=== PATIENT | female | born 1945 | race Caucasian/White ===

== ENCOUNTER → 2018-01-23 14:08 | Outpatient (CLI) | payer MEDICARE, OTHER, SELFPAY ==
--- NOTE | 2018-01-23 | DI.CT.S_ITS ---
PROCEDURE: CT LE LT W CON INDICATIONS: primary osteoarthritis of right foot TECHNIQUE: Noncontrast 1-1.5 mm axial sections acquired from above the tibiotalar joint to the bottom of the calcaneus, with coronal and sagittal reformats. COMPARISON: [facility], CT, LOWER EXTREMITY WO CONTRAST, 04/28/2016, 12:22. FINDINGS: Image quality: Excellent. Bones: No fractures or subluxation. There are osteoarthritic changes are demonstrated in the midfoot including moderate degeneration at the 2nd and 3rd tarsometatarsal joints with joint space narrowing, subchondral sclerosis and cystic changes, and osteophytosis. Findings demonstrate slight progression compared to the prior study. There is mild degeneration of the metatarsophalangeal joints. The visualized interphalangeal joints appear grossly preserved. Proximally, there is mild degeneration of the tibiotalar joint. Soft tissues: No tibiotalar joint effusion. There are small calcific densities inferior to the medial malleolus dressing sequelae of prior avulsion injury or heterotopic ossification. There are also small calcifications posteriorly along the tibiotalar joint also suggestive of heterotopic ossification or dystrophic calcifications along ligamentous structures. IMPRESSION: 1. Midfoot osteoarthritic changes including moderate degeneration of the 2nd and 3rd tarsometatarsal joints, slightly progressed compared to the prior study. 2. Mild degeneration elsewhere within the foot as described. Dictated by: Donato Spencer M.D. on 01/23/2018 at 16:36 Approved by: Donato Spencer M.D. on 01/23/2018 at 16:41
== END ==
PROVIDERS: Family Provider Physician Assistant Medical; PCP Physician Assistant Medical; Visit Provider Orthopaedic Surgery Foot and Ankle Surgery
DX: M19.071 Primary osteoarthritis, right ankle and foot (principal)
CPT/HCPCS: 73700

== ENCOUNTER 2018-02-22 05:40 | Day surgery (SDC) | payer MEDICARE, OTHER, SELFPAY ==
[2018-02-13 14:23] VITALS: BMI 35.7
[2018-02-22] VITALS (8 sets, daily range): BP systolic 120–158; BP diastolic 62–86; PULSE 68–79; RESP 10–16; TEMP 36–36.3; O2SAT 92–99; BMI 35.7
--- NOTE | 2018-02-22 07:11 | PM.PREOP ---
Pre-operative Note Interval Note Pre-op Check: Yes History & Physical Reviewed by Physician and Yes Exam Performed Changes: No
[2018-02-22] MEDS: fentaNYL 100 MCG/2 ML INJ 50 MCG IV (07:50)
[2018-02-22] MEDS: MIDAZOLAM 2 MG/2 ML VIAL IV (07:50)
[2018-02-22] MEDS: CEFAZOLIN 2 GM/100 ML FROZ.PIGGY IV (07:55)
[2018-02-22] MEDS: LACTATED RINGERS 1,000 ML 42 ML IV (08:06)
--- NOTE | 2018-02-22 08:11 | SUR.PREOP ---
Block start time []0754 . Monitoring initiated and maintained throughout procedure. Oxygen and medications given per anesthesiologist instructions. Patient remained stable throughout procedure, no adverse reactions noted. Block end time [0758].
--- NOTE | 2018-02-22 08:43 | SUR.OPER ---
Supine on padded OR bed, head on pillow, arms secured on padded arm boards at <90 degrees abduction, legs uncrossed, safety belt at thigh, tape over blanket over lower legs.
--- NOTE | 2018-02-22 08:43 | SUR.OPER ---
ROLLED BLANKET UNDER RIGHT HIP
[2018-02-22] MEDS: BUPIVACAINE 0.25% (PF) VIAL 30 ML INJ (08:57)
[2018-02-22] MEDS: CEFAZOLIN 1 GM VIAL IV (12:03)
--- NOTE | 2018-02-22 12:20 | DI.RAD.S_ITS ---
PROCEDURE: XR FOOT RT MIN 3V INDICATIONS: RIGHT FOOT REPAIR ACHILLES LENGTHENING TECHNIQUE: 11 intraoperative fluoroscopic images of the foot were acquired. COMPARISON: None. FINDINGS: Bones: Intraoperative fluoroscopic images of right foot shows fusion of first through third TMT joints with multiple fixation screws and surgical plates in place. Alignment of right foot is anatomic. Soft tissues: No gross abnormality is seen. IMPRESSION: Intraoperative fluoroscopic images shows fusion of right first and third TMT joints with anatomic alignment. Dictated by: Oracio Harmon M.D. on 02/22/2018 13:00 Approved by: Oracio Harmon M.D. on 02/22/2018 at 13:02
--- NOTE | 2018-02-22 13:03 | SUR.OPER ---
gelfoam and thrombin used in incision post tourniquet
[2018-02-22] MEDS: OXYCODONE IR 5 MG TABLET PO (13:38)
--- NOTE | 2018-02-22 14:35 | PM.OP.1 ---
Operative Date/Time/Diagnoses Date of procedure: 02/22/18 Time of procedure: 14:39 Pre-op diagnosis: Osteoarthritis right midfoot ICD 10 M19.071 Equinus contracture right ankle M24.571 Post-op diagnosis: same Procedure & Clinicians Procedure: 1. Arthrodesis, midtarsal or tarsometatarsal, multiple transverse, right CPT 74184 2. Lengthening, Achilles tendon, closed, right cpt 22030-71 3. Iliac crest bone marrow aspiration, right cpt code 38048 -59 Same procedure as scheduled: Yes Indications: Patient is a 72-year-old female with right midfoot arthritis and equinus contracture. She has failed conservative management with shoe modifications anti-inflammatories, corticosteroid injections, orthotics, diclofenac patches. She has a well controlled diabetic with hemoglobin A1c 6.1 she has daily pain and soreness that is activity limiting and she is desiring surgical fixation. The patient does not smoke and has protective sensation. She has been indicated for right midfoot fusion and percutaneous Achilles lengthening with iliac crest bone graft. The risks benefits and alternatives to the procedure were explained to the patient in detail including infection, bleeding, damage to nerves and blood vessels, wound dehiscence or healing problems, nonunion, malunion, symptomatic hardware, further need for removal of hardware, inability to return to the desired level of function, generalized dissatisfaction with the surgical result, DVT, PE, cardiopulmonary complications and . All the patient's questions were answered they elected to proceed. Surgeon: Alyssa Burton Weir Fisherman: Rica Alexis Anesthesia Type: General, Peripheral nerve block and Local Operative Notes Findings: Degenerative arthritis of the 1st 2nd and 3rd tarsometatarsal joint with extensive degeneration and eburnated bone in the 2nd and 3rd tarsometatarsal joints with dorsal spurring articular cartilage loss and cyst formation Closure Type: primary Specimen(s): none sent Implants & Drains: First TMT arthrodesis: : 4.0 cortical lag screw x2 Lisfranc home run screw: [id number]: 4.0 cannulated screw Second TMT arthrodesis : 3 hole slanted straight plate right-sided Third TMT arthrodesis : 3 holes slanted straight plate left side 5 cc DMX cortical fibers, 15cc cancellous chips Applied: other (Splint) Estimated Blood Loss (mL): 30 Blood products transfused: none Tourniquet time (min): 120 Procedure in detail: In the preoperative holding area, the appropriate limb and side of surgery were marked. Informed consent was confirmed and final questions answered. The patient was brought to the operating room and positioned supine on the operative table. General endotracheal anesthesia was obtained. A well-padded thigh tourniquet was placed on the upper aspect of the right thigh. Patient's right leg was then positioned with thigh bump. And the contralateral extremity was well padded around the peroneal nerve and taped down. The right leg was then prepped and draped in the standard sterile fashion after 3 step scrubbed with alcohol, chlorhexidine sponge and then the usual chlorhexidine surgical scrub. Additionally the patient's right iliac crest was prepped in the standard sterile fashion. A formal time-out procedure was completed confirming the patient, side and site of surgery and administration of appropriate preoperative antibiotics which in this case was 2 g of cefazolin. All were in agreement and implants were in the room. An Esmarch bandage was utilized to exsanguinate the limb the tourniquet was raised to 300 mm of mercury and stayed there for 120 min. Tendo-Achilles lengthening: Attention was turned to the right foot the ankle was dorsiflexed with the knee extended and with the knee bent with dorsiflexion only to neutral in both positions. Therefore decision was made to proceed with the percutaneous tendo-Achilles lengthening. The leg was elevated and the ankle held in dorsiflexion by the doctor assistant. Three small percutaneous incisions were made and a [place] style fashion to hemisection the Achilles tendon with distal and proximal incisions ankle laterally and the middle incision ankle medially. Provided an excellent release and the lengthening achieving approximately 15? of dorsiflexion with knee extension. The remaining lengthened Achilles tendon was a palpable cord posteriorly. C-arm was brought in and the dual dorsal incision were marked out over the skin along the 1st and 2nd metatarsal interval as well as over the 4th metatarsal. A dorsal medial incision was made 1st sharply through the skin and carried down through the underlying soft tissues to expose the tarsometatarsal joint complex. The EHL tendon was protected and reflected laterally to protect the neurovascular bundle. The 1st TMT joint capsule was then entered and subperiosteal dissection was carried to expose the 1st TMT joint. There was minimal arthritis of the 1st TMT but this increased at the lateral aspect of the joint and into the 1st 2nd interval. The neurovascular bundle was then retracted medially to expose the 2nd TMT joint and this again was subperiosteal E dissected to expose end-stage degenerative joint with eburnated bone in a very little remaining cartilage and prominent dorsal osteophytes. The lateral dorsal incision was also made through the skin and dissected carefully down through the subcutaneous tissues to the 3rd tarsometatarsal joint. This was also late stage degenerative with articular cartilage loss osteophyte formation and cystic change. All articular cartilage was removed from the 1st 2nd and 3rd joints using the Synthes joint prep set osteotomes. This took quite some time was challenging due to the eburnated hard bone of the 2nd and 3rd tarsometatarsal joints. Additionally underlying cysts were encountered creating the areas of bone loss. Once the subchondral bone was adequately exposed this was then prepared with a bur and 2.0 mm drill bit to create good bleeding surfaces. The iliac crest bone marrow aspirate was then performed on the right side utilizing the Jamshidi needle. 2 different incisions were made for the iliac crest aspirate attempts and several redirections or made st each sit. unfortunately only a negligible amount of aspirate was able to be obtained. therefore this, saline and plain blood were used to hydrate the allogenic bone graft. Iliac crest aspirate sites were closed with 3 O nylon suture. Surgical Gloves were changed and attention was returned to the right foot. The allogenic bone graft was placed into all of the fusion sites, and into the 1 -2 interval. First tarsometatarsal joint was then reduced and held in place with 2 crossed K-wires. This was checked on C-arm fluoroscopy for positioning then the wires were measured and exchanged for a countersunk distal to proximal 4.0 cortical lag screw and a countersunk proximal to distal 4.0 cortical lag screw. This stably reduced the 1st tarsometatarsal joint. Attention was then turned to the 2nd tarsometatarsal joint. Sec TMT was reduced utilizing a right-sided 2.7 slanted straight plate. This was approximated to bone and secured with 2.7 locking screws in the middle cuneiform then with a 3.5 nonlocking screw in compression mode over the 2nd metatarsal to compress the arthrodesis, followed by an additional 2.7 locking screw distally. The 3rd tarsometatarsal joint was reduced and fixed in the same fashion using the same 2.7 slanted straight plate, but from the left-side of the set in order to use the same size plate to span the arthrodesis and provide optimal bone fixation. Again 2.7 locking screws were used proximally. One of these was changed out for a 3.5 locking screw after 1 of the 2 7 locking screws stripped would not engage in the plate. Compression was achieved distally with a 3.5 nonlocking screw in the oval hole. And then 2 , 2.7 locking screws were placed into the metatarsal. This achieved excellent fixation and alignment. Finally a Home run Lisfranc screw was added from the medial cuneiform to the base of the 2nd metatarsal and this was a 4.0 cannulated screw. Irrigation was performed. Final fluoroscopy was brought in for assessment of the hardware placement. Alignment of the joints and hardware placement was excellent. Hemostasis was achieved, and the wound was closed with 2 O Vicryl, 4 0 Monocryl, [id number] nylon. Skin was closed at the end of the procedure without excessive tension. A sterile bulky dressing and splint was then applied. Patient was woken from anesthesia and taken to the recovery room in good condition. There were no known the immediate complications from this procedure. Complications: none Condition: stable Disposition: PACU Plan for aftercare: The patient will be strict elevation, strict nonweightbearing on the right lower extremity. She is allergic to aspirin and therefore will start Xarelto postop day 1 for DVT prophylaxis. They will follow up in 1 weeks time for wound check and then transition to a cast. They will follow up 2 weeks later for wound check and possible suture removal. Anticipated 8-12 weeks nonweightbearing based on healing on radiographs.
--- NOTE | 2018-02-22 14:40 | P.OP_ITS ---
Operative Date/Time/Diagnoses Date of procedure: 02/22/18 Time of procedure: 14:39 Pre-op diagnosis: Osteoarthritis right midfoot ICD 10 M19.071 Equinus contracture right ankle M24.571 Post-op diagnosis: same Procedure & Clinicians Procedure: 1. Arthrodesis, midtarsal or tarsometatarsal, multiple transverse, right CPT 31197 2. Lengthening, Achilles tendon, closed, right cpt 78545-57 3. Iliac crest bone marrow aspiration, right cpt code 81480 -59 Same procedure as scheduled: Yes Indications: Patient is a 72-year-old female with right midfoot arthritis and equinus contracture. She has failed conservative management with shoe modifications anti-inflammatories, corticosteroid injections, orthotics, diclofenac patches. She has a well controlled diabetic with hemoglobin A1c 6.1 she has daily pain and soreness that is activity limiting and she is desiring surgical fixation. The patient does not smoke and has protective sensation. She has been indicated for right midfoot fusion and percutaneous Achilles lengthening with iliac crest bone graft. The risks benefits and alternatives to the procedure were explained to the patient in detail including infection, bleeding, damage to nerves and blood vessels, wound dehiscence or healing problems, nonunion, malunion, symptomatic hardware, further need for removal of hardware, inability to return to the desired level of function, generalized dissatisfaction with the surgical result, DVT, PE, cardiopulmonary complications and . All the patient's questions were answered they elected to proceed. Surgeon: Alyssa Burton Internet Marketing Specialist: Rica Alexis Anesthesia Type: General, Peripheral nerve block and Local Operative Notes Findings: Degenerative arthritis of the 1st 2nd and 3rd tarsometatarsal joint with extensive degeneration and eburnated bone in the 2nd and 3rd tarsometatarsal joints with dorsal spurring articular cartilage loss and cyst formation Closure Type: primary Specimen(s): none sent Implants & Drains: First TMT arthrodesis: [id number]: 4.0 cortical lag screw x2 Lisfranc home run screw: [id number]: 4.0 cannulated screw Second TMT arthrodesis : 3 hole slanted straight plate right-sided Third TMT arthrodesis [id number]: 3 holes slanted straight plate left side 5 cc DMX cortical fibers, 15cc cancellous chips Applied: other (Splint) Estimated Blood Loss (mL): 30 Blood products transfused: none Tourniquet time (min): 120 Procedure in detail: In the preoperative holding area, the appropriate limb and side of surgery were marked. Informed consent was confirmed and final questions answered. The patient was brought to the operating room and positioned supine on the operative table. General endotracheal anesthesia was obtained. A well-padded thigh tourniquet was placed on the upper aspect of the right thigh. Patient's right leg was then positioned with thigh bump. And the contralateral extremity was well padded around the peroneal nerve and taped down. The right leg was then prepped and draped in the standard sterile fashion after 3 step scrubbed with alcohol, chlorhexidine sponge and then the usual chlorhexidine surgical scrub. Additionally the patient's right iliac crest was prepped in the standard sterile fashion. A formal time-out procedure was completed confirming the patient, side and site of surgery and administration of appropriate preoperative antibiotics which in this case was 2 g of cefazolin. All were in agreement and implants were in the room. An Esmarch bandage was utilized to exsanguinate the limb the tourniquet was raised to 300 mm of mercury and stayed there for 120 min. Tendo-Achilles lengthening: Attention was turned to the right foot the ankle was dorsiflexed with the knee extended and with the knee bent with dorsiflexion only to neutral in both positions. Therefore decision was made to proceed with the percutaneous tendo-Achilles lengthening. The leg was elevated and the ankle held in dorsiflexion by the surveyor instrument assistant. Three small percutaneous incisions were made and a [place] style fashion to hemisection the Achilles tendon with distal and proximal incisions ankle laterally and the middle incision ankle medially. Provided an excellent release and the lengthening achieving approximately 15? of dorsiflexion with knee extension. The remaining lengthened Achilles tendon was a palpable cord posteriorly. C-arm was brought in and the dual dorsal incision were marked out over the skin along the 1st and 2nd metatarsal interval as well as over the 4th metatarsal. A dorsal medial incision was made 1st sharply through the skin and carried down through the underlying soft tissues to expose the tarsometatarsal joint complex. The EHL tendon was protected and reflected laterally to protect the neurovascular bundle. The 1st TMT joint capsule was then entered and subperiosteal dissection was carried to expose the 1st TMT joint. There was minimal arthritis of the 1st TMT but this increased at the lateral aspect of the joint and into the 1st 2nd interval. The neurovascular bundle was then retracted medially to expose the 2nd TMT joint and this again was subperiosteal E dissected to expose end-stage degenerative joint with eburnated bone in a very little remaining cartilage and prominent dorsal osteophytes. The lateral dorsal incision was also made through the skin and dissected carefully down through the subcutaneous tissues to the 3rd tarsometatarsal joint. This was also late stage degenerative with articular cartilage loss osteophyte formation and cystic change. All articular cartilage was removed from the 1st 2nd and 3rd joints using the Synthes joint prep set osteotomes. This took quite some time was challenging due to the eburnated hard bone of the 2nd and 3rd tarsometatarsal joints. Additionally underlying cysts were encountered creating the areas of bone loss. Once the subchondral bone was adequately exposed this was then prepared with a bur and 2.0 mm drill bit to create good bleeding surfaces. The iliac crest bone marrow aspirate was then performed on the right side utilizing the Jamshidi needle. 2 different incisions were made for the iliac crest aspirate attempts and several redirections or made st each sit. unfortunately only a negligible amount of aspirate was able to be obtained. therefore this, saline and plain blood were used to hydrate the allogenic bone graft. Iliac crest aspirate sites were closed with 3 O nylon suture. Surgical Gloves were changed and attention was returned to the right foot. The allogenic bone graft was placed into all of the fusion sites, and into the 1 -2 interval. First tarsometatarsal joint was then reduced and held in place with 2 crossed K-wires. This was checked on C-arm fluoroscopy for positioning then the wires were measured and exchanged for a countersunk distal to proximal 4.0 cortical lag screw and a countersunk proximal to distal 4.0 cortical lag screw. This stably reduced the 1st tarsometatarsal joint. Attention was then turned to the 2nd tarsometatarsal joint. Sec TMT was reduced utilizing a right-sided 2.7 slanted straight plate. This was approximated to bone and secured with 2.7 locking screws in the middle cuneiform then with a 3.5 nonlocking screw in compression mode over the 2nd metatarsal to compress the arthrodesis, followed by an additional 2.7 locking screw distally. The 3rd tarsometatarsal joint was reduced and fixed in the same fashion using the same 2.7 slanted straight plate , but from the left-side of the set in order to use the same size plate to span the arthrodesis and provide optimal bone fixation. Again 2.7 locking screws were used proximally. One of these was changed out for a 3.5 locking screw after 1 of the 2 7 locking screws stripped would not engage in the plate. Compression was achieved distally with a 3.5 nonlocking screw in the oval hole. And then 2 , 2.7 locking screws were placed into the metatarsal. This achieved excellent fixation and alignment. Finally a Home run Lisfranc screw was added from the medial cuneiform to the base of the 2nd metatarsal and this was a 4.0 cannulated screw. Irrigation was performed. Final fluoroscopy was brought in for assessment of the hardware placement. Alignment of the joints and hardware placement was excellent. Hemostasis was achieved, and the wound was closed with 2 O Vicryl, 4 0 Monocryl , [id number] nylon. Skin was closed at the end of the procedure without excessive tension. A sterile bulky dressing and splint was then applied. Patient was woken from anesthesia and taken to the recovery room in good condition. There were no known the immediate complications from this procedure. Complications: none Condition: stable Disposition: PACU Plan for aftercare: The patient will be strict elevation, strict nonweightbearing on the right lower extremity. She is allergic to aspirin and therefore will start Xarelto postop day 1 for DVT prophylaxis. They will follow up in 1 weeks time for wound check and then transition to a cast. They will follow up 2 weeks later for wound check and possible suture removal. Anticipated 8-12 weeks nonweightbearing based on healing on radiographs.
--- NOTE | 2018-02-22 15:59 | SUR.PHASEII ---
[id number] pt dressed with assistance, no pain pt had block , no nausea, assisted to w/c, leg elevated, pt non weight bearing , assisted with transfer to car , no questions
== END 2018-02-22 14:45 | disposition home or self-care (01) ==
PROVIDERS: Family Provider Physician Assistant Medical; PCP Physician Assistant Medical; Visit Provider Orthopaedic Surgery Foot and Ankle Surgery
PROC: (CPT 28730; principal; 2018-02-22 07:45)
PROC: (CPT 27685; 2018-02-22 07:45)
DX: M19.071 Primary osteoarthritis, right ankle and foot (principal); M24.571 Contracture, right ankle; E11.9 Type 2 diabetes mellitus without complications; Z79.84 Long term (current) use of oral hypoglycemic drugs
CPT/HCPCS: 28730; 27606; 38230; 73630; 76001; J0690; J2250; J2405; J2704; J3010

== ENCOUNTER → 2018-07-26 10:54 | Outpatient (CLI) | payer MEDICARE, OTHER, SELFPAY ==
--- NOTE | 2018-07-26 | DI.CT.S_ITS ---
PROCEDURE: CT LUMBAR SPINE WO CON INDICATIONS: Low back pain TECHNIQUE: Noncontrast 3 mm thick sections acquired from the T12 level to the sacrum. Sagittal and coronal reformats were constructed. For radiation dose reduction, the following was used: automated exposure control. COMPARISON: [facility], CR, XR LUMBAR SPINE 2 OR 3 VIEWS, 06/17/2018, 10:03. [facility], CT, L-SPINE WITHOUT CONTRAST, 04/20/2017, 11:12. FINDINGS: Image quality: Excellent. Bones: There is a comminuted fracture within the inferior and middle third of the L1 vertebral body. There is an overall appearance of approximate 35% compression deformity. There is no gross retropulsion. Severe degenerative disc space narrowing is present at L3-4, L4-5 and L5-S1, along with reactive endplate changes. Posterior disc bulges present at L1-L2 with minimal left lateral component. Mild disc bulges are present at L2-3, L3-4 including small left foraminal component, L4-L5 and L5-S1. Minimal to mild spinal stenosis is present at L2-3, moderate to severe L3-L4, severe at L4-5 with canal flattening as well as L5-S1. There is mild bilateral foraminal narrowing at L2-3, severe left and moderate to severe right L3-L4, severe bilateral L4-L5 and L5-S1, right greater than left. Prominent multilevel uncovertebral arthropathy is present. Soft tissues: No retroperitoneal masses or hematomas. Visualized aorta is normal in caliber. The presumed stimulator wires are noted in the right lower pelvis. IMPRESSION: 1. Comminuted L1 compression fracture affecting the inferior and middle third of the vertebral body with approximate 35% compression deformity. This appears prominent when compared to prior exam. 2. Multiple disc bulges. 3. Multiple spinal stenosis secondary to disc bulges as well as uncovertebral arthropathy most severe at L4-5 and L5-S1. 3. Multilevel foraminal narrowing severe from L3-4 through L5-S1 secondary to uncovertebral arthropathy. Dictated by: April Hutchins M.D. on 07/26/2018 at 16:23 Approved by: April Hutchins M.D. on 07/26/2018 at 16:34
== END ==
PROVIDERS: Family Provider Physician Assistant Medical; PCP Physician Assistant Medical; Visit Provider Physical Medicine & Rehabilitation Pain Medicine
DX: M48.56XA Collapsed vertebra, not elsewhere classified, lumbar region, initial encounter for fracture (principal); M48.061 Spinal stenosis, lumbar region without neurogenic claudication; M51.26 Other intervertebral disc displacement, lumbar region; M47.816 Spondylosis without myelopathy or radiculopathy, lumbar region; M47.817 Spondylosis without myelopathy or radiculopathy, lumbosacral region
CPT/HCPCS: 72131

== ENCOUNTER 2018-08-16 07:04 | Inpatient (IN) | payer MEDICARE, OTHER, SELFPAY ==
[2018-08-09 08:37] VITALS: BMI 36.0
[2018-08-16] VITALS (17 sets, daily range): BP systolic 82–139; BP diastolic 43–81; PULSE 70–91; RESP 5–18; TEMP 36.1–37.2; O2SAT 90–100; BMI 36.0
--- NOTE | 2018-08-16 | DI.RAD.S_ITS ---
PROCEDURE: XR LUMBAR SPINE 2-3V INDICATIONS: L3-S1 TLIF FINDINGS: 2 limited intraoperative fluoroscopically stored images of the lower lumbar spine were obtained for intraoperative hardware localization purposes. These images are not meant for diagnostic purposes. Intraoperative findings related to a L3-S1 lumbar fusion procedure are present. IMPRESSION: Intraoperative images obtained during the patient's lumbar fusion procedure. Dictated by: Gume Arias M.D. on 08/16/2018 at 12:49 Approved by: Gume Arias M.D. on 08/16/2018 at 12:50
[2018-08-16] MEDS: LACTATED RINGERS 1,000 ML 42 ML IV ×2 (07:35→11:00)
--- NOTE | 2018-08-16 07:39 | PM.PREOP ---
Pre-operative Note Interval Note History & Physical reviewed/Exam performed by Physician: Yes Changes to H&P: No
[2018-08-16] MEDS: METOPROLOL IR 25 MG TABLET PO (07:53)
[2018-08-16] MEDS: CEFAZOLIN 2 GM/100 ML FROZ.PIGGY IV ×3 (07:59→20:41)
--- NOTE | 2018-08-16 08:47 | SUR.OPER ---
Prone on spine table, head in foam head support, padded chest and pelvic supports, gel pad at knees, lower legs supported by pillows; nipples, genitalia and toes free of pressure, arms secured on foam padded arm boards at <90 degrees abduction. Tape over blanket at thigh secured to table.
[2018-08-16] MEDS: BUPIVACAINE 0.25% W/ EPI VIAL 30 ML INJ (08:52)
[2018-08-16] MEDS: BUPIVACAINE LIPOSOME 266 MG/20 ML VIAL INJ (08:53)
[2018-08-16] MEDS: ACETAMINOPHEN IV 1,000 MG/100 ML VIAL 400 MG IV (12:14)
--- NOTE | 2018-08-16 13:07 | PM.OP.1 ---
Operative Date/Time/Diagnoses Date of procedure: 08/16/18 Time of procedure: 08:07 Pre-op diagnosis: 1. L3-4, L4-5, L5-S1 spondylosis with radiculopathy 2. L3-4, L4-5, L5-S1 spinal stenosis 3. Lumbar scoliosis Post-op diagnosis: same Procedure & Clinicians Procedure: 1. L3-4, L4-5, L5-S1 Postero-lateral and posterior interbody fusion 2. L3-4, L4-5, L5-S1 interbody cage placement. 3. L3-4, L4-5, L5-S1 decompressive laminectomy with bilateral facetecomies 4. L3-4, L4-5, L5-S1 Posterior segmental instrumentation 5. [place] of bone marrow from iliac crest 6. Utilization of microsurgical technique and operating microscope Same procedure as scheduled: Yes Indications: Patient has been having chronic back pain and worsening lumbar radiculopathy. Patient failed multiple conservative management with worsening pain weakness and numbness in her lower extremity. Patient has been having difficulty performing activity of daily living. After discussing risks benefits of treatment options, patient elected proceed with surgery. Surgeon: Robin Polk Ribbon Inker: Rica Alexis Click Yes if Unassisted: No Anesthesia Type: General Operative Notes Closure Type: primary Specimen(s): none sent Prosthetic devices, grafts, tissues, transplants, or devices: Globus revolve screws, Rise cages Applied: catheter Estimated Blood Loss (mL): 400 Blood products transfused: none Procedure in detail: Patient was seen in the preoperative area. Risks and benefits of the surgery was discussed with the patient. Informed consent was obtained from the patient and placed in the chart. Surgical site was marked. Patient was taken to the operative room. General anesthesia was administered. Prophylactic antibiotic was given to the patient less than 30 min before the incision was made. Patient was placed into a prone position on the Anoop table. Patient's back was then prepped and draped in the sterile fashion. Time-out was performed at this time. Using AP and lateral C-arm imaging the interval between L3-S1 was identified and marked on patient's back. A 3 inch incision 2 in from midline was made on the left side first. The fascia was incised in line with skin incision. Globus MARS retractors was placed inside the incision and docked onto the L3, L4 and L5 lamina. Using microsurgical technique and operating microscope, a L3, L4 and L5 laminectomy and L3-4, L4-5 L5-S1 facetectomy was performed using a Kerrison rongeur. Patient was found to have severe neuroforaminal stenosis and moderate central stenosis at all 3 levels which was fully decompressed after the decompression was completed. More than 75% of bilateral facets were removed at all 3 levels in order for the decompression to be successful. The disc space at L3-4, L4-5, L5-S1 was identified. And a total diskectomy was performed at L3-4, L4-5, L5-S1 level. The endplates were decorticated using a rasp and shaver. The total diskectomy and decortication was performed at L3-4, L4-5, L5-S1 level in order to to accomplish a L3-4, L4-5, L5-S1 fusion. The local bone from the laminectomy and facetectomy was saved for local bone grafting. After the total diskectomy and decortication was completed, Bio4 bone graft material was combined with local bone that was harvested earlier. At this time, a separate skin is incision was made over the iliac crest. A Jamshidi needle was inserted into the iliac crest through a separate skin incision. 5 cc of bone marrow aspiration was obtained through the separate skin incision using a Jamshidi needle from the iliac crest. The bone marrow aspiration was combined with local bone and the Bio4 bone grafting material. The bone grafting material was placed into the L3-4, L4-5, L5-S1 interbody space along with three cages, one expandable cage at each level. The cages were expanded to their maximum height using the torque limiting screwdriver. At this time a mirror image incision was made on the right side. The fascia was incised in line with the skin incision. Globus MARS retractor was inserted and docked onto the L3-4, L4-5, L5-S1 posterolateral gutter. Using the power drill, posterior-lateral decortication was performed at L3-4, L4-5, L5-S1 level until bleeding cortical bone was identified. The remaining bone grafting material was placed into the L3-4, L4-5 L5-S1 posterior lateral gutter he order to accomplish posterolateral fusion at the L3-4, L4-5 L5-S1 levels. Using the double C-arm technique, pedicle screws were placed into the L3, L4, L5, S1 pedicles bilaterally. This was done by placing the Jamshidi needle into the pedicles, then placing the guidewires over the Jamshidi needle, and finally placing the cannulated screws over the guidewires bilaterally. After the pedicle screws were placed, 2 titanium rods was locked into the heads of the pedicle screws using locking caps and torque limiting screwdriver. Total 8 pedicles screws were placed. After all the hardware was placed, and confirmed with AP and lateral C-arm imaging, the wound was then irrigated with sterile normal saline and packed with Ray-Karen gauze for 3 min to accomplish hemostasis. After the gauze was removed the deep fascia was closed with #1 Vicryl suture. The subcutaneous layer was closed with 2-0 Vicryl. The skin was closed with skin elda. Patient tolerated the procedure well. There were no complications. Complications: none Condition: stable Disposition: PACU Plan for aftercare: Admit to inpatient hospital
[2018-08-16] MEDS: HYDROMORPHONE 2 MG INJ 0.5 MG IV ×3 (13:20→13:35)
[2018-08-16] MEDS: LORazepam 2 MG/ML SYRINGE 0.5 MG IV ×2 (13:38→14:00)
[2018-08-16] MEDS: SODIUM CHLORIDE 0.9% 1,000 ML 100 ML IV (15:00)
--- NOTE | 2018-08-16 15:27 | PC.NURSE ---
pt arrived to room about 1415. RR 5; wakes up with sternal rub. O2 at 4L/NC. Dr. Sommers notified and orders received. Narcan 0.04mg IV; pt woke up and RR 16. Dr. Sommers notified of results. pt's at bedside.
--- NOTE | 2018-08-16 15:29 | SUR.PHASEI ---
Addendum to 1404: an additional 0.5mg was administered via IV.
[2018-08-16] MEDS: NALOXONE 0.4 MG/ML VIAL IV (15:35)
[2018-08-16] MEDS: ACETAMINOPHEN 325 MG TABLET 975 MG PO (18:41)
[2018-08-16] MEDS: OXYCODONE IR 5 MG TABLET 10 MG PO ×2 (18:43→22:37)
[2018-08-16] MEDS: POTASSIUM CHLORIDE 10 MEQ TAB PO ×2 (18:44→20:29)
[2018-08-16] MEDS: hydrOXYzine pamoate 25 MG CAPSULE PO (18:49)
[2018-08-16] MEDS: SIMVASTATIN 10 MG TABLET PO (20:28)
[2018-08-16] MEDS: PREGABALIN 75 MG CAPSULE 300 MG PO (20:29)
[2018-08-16] MEDS: SENNOSIDES 8.6 MG TABLET 17.2 MG PO (20:29)
[2018-08-16] MEDS: METOPROLOL ER 25 MG TABLET PO (20:29)
[2018-08-16] MEDS: DOCUSATE 100 MG CAPSULE PO (20:29)
[2018-08-16] MEDS: FLUTICASONE/SALMETEROL 100/50 14 PUFF DISKUS 2 PUFF INH (20:36)
[2018-08-16] MEDS: METFORMIN HCL 500 MG TABLET PO (20:38)
[2018-08-16] MEDS: HYDROMORPHONE 0.5 MG INJ IV (20:50)
--- NOTE | 2018-08-16 21:38 | PC.NURSE ---
Addendum entered by Pastora Blood R.N. 08/16/18 21:42: bacitracin ointment applied to zeny cheeks from surgical tape removal. 98 % 1L NC. will continue to monitor. arouse to voice. Original Note: 1500- assumed care of pt. Pt was very drowsy still. 100% on 4L turned down to 2 l. tolerated. kept weaning until pt was off oxygen. did give IV Dilaudid around 9pm as pt crying and moaning in pain. this did help with back pain. Pt did fall asleep and ended up needing 1L of oxygen. given meds. uses call light. Pt has been rolling and turned. not yet out of bed. judie patent. bed alarm on. side rails upx3 will continue to monitor pt for safety.
[2018-08-17] VITALS (16 sets, daily range): BP systolic 98–143; BP diastolic 45–69; PULSE 78–115; RESP 14–28; TEMP 36.8–39.4; O2SAT 94–100
[2018-08-17] MEDS: SODIUM CHLORIDE 0.9% 1,000 ML 100 ML IV (00:14)
[2018-08-17] MEDS: ACETAMINOPHEN 325 MG TABLET 650 MG PO (00:15)
[2018-08-17] MEDS: hydrOXYzine pamoate 25 MG CAPSULE PO (00:15)
[2018-08-17] MEDS: OXYCODONE IR 5 MG TABLET 10 MG PO ×2 (01:36→07:53)
[2018-08-17] MEDS: HYDROMORPHONE 0.5 MG INJ IV ×3 (01:58→06:32)
[2018-08-17] MEDS: ACETAMINOPHEN 325 MG TABLET 975 MG PO ×3 (03:12→21:30)
--- NOTE | 2018-08-17 03:16 | PC.NURSE ---
Pt's. pain uncontrollable at the beginning of my shift, repositioned multiple times and medicated as well with Tylenol, Vistaril, and Oxycodone 10 mg. which did not provide any relief. Hydromorphone 0.5 mg IV given which gave pt. pain relief. Pt. also had a fever of 101.3 oral which the Tylenol was given for at 0015, temp recheck pt. still febrile so cool compress applied to forehead and armpits yet fever still continues to rise. Dr. Rubio called and informed him of this and no new order except to give Tylenol when due. Tylenol 560 mg not due until 0615 so pt. given 975 mg Tylenol which was not given at 2100. Asked MD if he would want to have blood culture done and states not necessary at this time since pt. just had surgery yesterday. Pt's. current VS B/P-127/69, HR-107, RR-20, T-102.9, 02 Sats-96-100 on 2L 02. 02 was increased from 0.5L to 2L NC around 2 am after pt. given Hydromorphone 0.5 mg as she was breathing shallow and desats to the 80's. Encouraged pt. to take deep breathing to avoid resp. complications. Will continue to monitor pt's status.
[2018-08-17] MEDS: CEFAZOLIN 2 GM/100 ML FROZ.PIGGY IV (03:43)
[2018-08-17 05:19] LABS: Hematocrit 29.9 % (36-46)
[2018-08-17] MEDS: LEVOTHYROXINE 100 MCG TABLET PO (06:09)
[2018-08-17] MEDS: LEVOTHYROXINE 75 MCG TABLET PO (06:09)
--- NOTE | 2018-08-17 06:37 | PC.NURSE ---
Pt's. fever finally broke at 0437 with a temp of 93.3F. Pain is still an issue and Hydromorphone 0.5 mg IV q2h works well, pt. is able to sleep for 1 to 1 and a half hour after Hydromorphone given. 02 decreased to 1L NC with sats in the high 90's. CMS intact, drsg. to lower back CD&I, [facility] with 1400 clear yellow urine output. Continue to monitor.
[2018-08-17] MEDS: POTASSIUM CHLORIDE 10 MEQ TAB PO ×3 (08:00→21:30)
[2018-08-17] MEDS: CYANOCOBALAMIN (VITAMIN B-12) 500 MCG TABLET 1000 MCG PO (08:00)
[2018-08-17] MEDS: FERROUS SULFATE 325 MG TABLET PO (08:01)
[2018-08-17] MEDS: CHOLECALCIFEROL (VITAMIN D3) 1,000 UNIT TABLET 1000 UNIT PO (08:01)
[2018-08-17] MEDS: TRIAMTERENE/HCTZ 37.5/25 TABLET 1 CAP PO (08:03)
[2018-08-17] MEDS: VITAMIN E 400 UNIT CAPSULE 800 UNIT PO (08:03)
[2018-08-17] MEDS: DOCUSATE 100 MG CAPSULE PO ×2 (08:03→21:30)
[2018-08-17] MEDS: METFORMIN HCL 500 MG TABLET PO ×2 (08:04→21:30)
[2018-08-17] MEDS: METOPROLOL ER 25 MG TABLET PO ×2 (08:04→21:30)
[2018-08-17] MEDS: PREGABALIN 75 MG CAPSULE 300 MG PO ×2 (08:09→21:30)
[2018-08-17] MEDS: FLUTICASONE/SALMETEROL 100/50 14 PUFF DISKUS 2 PUFF INH ×2 (10:03→21:19)
[2018-08-17] MEDS: HYDROMORPHONE 2 MG TABLET PO ×2 (10:39→14:25)
--- NOTE | 2018-08-17 10:45 | PM.PNPO.1 ---
Subjective Date Patient Seen: 08/17/18 Time Patient Seen: 10:45 Interval history: Pain is severe. No fever chills. No nausea vomiting. Exam Vital Signs (past 8 hours): - 08/17/18 03:12 08/17/18 03:48 08/17/18 04:37 Temperature 102.9 F H 102 F H 98.3 F Pulse Rate 101 H Respiratory Rate 20 Blood Pressure 127/69 Pulse Oximetry 100 08/17/18 07:53 08/17/18 07:58 08/17/18 10:07 Temperature 99.9 F H 99.9 F H Pulse Rate 96 H 78 Respiratory Rate 19 14 Blood Pressure 141/63 H Pulse Oximetry 100 94 Oxygen Delivery Method Room Air Oxygen Flow Rate 1 Narrative Exam Narrative: 73-year-old female resting in bed in obvious discomfort. The dressing is clean, dry and intact. Both legs are warm and dry. Sensation grossly intact to light touch bilateral lower extremities. Motor functions intact bilateral lower extremities. Objective Labs Result Diagrams: 08/17/18 04:56 Labs: Laboratory Results - last 24 hr 08/17/18 04:56 Hgb 10.0 L Hct 29.9 L Assessment & Plan Post-op Postoperative Procedures Operation Date: 08/16/18 07:45 Actual Procedures Side Surgeon p L3-4,L4-5,L5-S1 TLIF w/Posterior Instru. Robin Polk MD Postop day 1. Status post lumbar fusion L3 through S1. Work on pain control and mobilize with physical therapy. Quality VTE Deep Vein Thrombosis/Pulmonary Embolism Present on Admission: No
--- NOTE | 2018-08-17 10:50 | PT.IIE ---
Current Diagnoses Esophageal obstruction (08/16/18) Other spondylosis with radiculopathy, lumbar region (08/16/18) Spinal stenosis, lumbar region with neurogenic claudication (08/16/18) Surgery Performed Operation Date: 08/16/18 07:45 Actual Procedures p L3-4,L4-5,L5-S1 TLIF w/Posterior Instru. - Robin Polk MD Surgical History (Last Updated 08/09/18 @ 11:04 by Nasrin Capps RN) History of arthroplasty of left knee (Acute ~09/2009) History of bilateral carpal tunnel release (Acute ~2003) History of gastric bypass (Acute ~2004) Hx of appendectomy (Acute ~1955) Hx of bladder repair surgery (Acute ~2015) Hx of cholecystectomy (Acute ~1980) Hx of foot surgery (Acute ~01/2018) Hx of left breast biopsy (Acute ~2007) Hx of repair of left rotator cuff (Acute ~2014) Hx of repair of right rotator cuff (Acute ~2006) Medical History (Last Updated 08/09/18 @ 11:04 by Nasrin Capps RN) Angioedema (Acute) Edema (Acute) Esophageal stricture (Acute) H/O: hysterectomy (Acute ~1986) Hx of herpes labialis (Acute) Hyperlipidemia (Acute) Hypokalemia (Acute) Leukocytosis (Acute) Osteopenia (Acute) Abnormal heart rhythm (Acute) COPD (chronic obstructive pulmonary disease) (Acute) Diabetes (Acute) Equinus contracture of right ankle (Acute) Fibromyalgia (Acute) GERD (gastroesophageal reflux disease) (Acute) History of MRSA infection (Acute) Hypothyroidism (Acute) Osteoarthritis of right midfoot (Acute) Peripheral neuropathy (Acute) Right foot pain (Acute) Skin cancer (Acute) Wheezing (Acute) Physical Therapy Inpatient Evaluation/Re-Eval M1 PT/OT-IP Prior Functional Status Start: 08/17/18 12:23 Freq: NEEDED Status: Active Protocol: Document 08/17/18 10:50 AB (Rec: 08/17/18 12:34 AB [id number]) Medical Review Prior Functional Status Medical History Reviewed Yes Communication pt is lethargic Mobility and Gait per spouse: pt is independent with all mobilities and ambulation using 4WW indoors/ outdoors Social History Household Members spouse Living Arrangements House Number of Floors (Floors) One Floor Number of Stairs To Enter/Railing? 2 steps to neter with L rail ascending Home Environment Standard Height Toilet Walk in Shower Tub/Shower Home Equipment Front Wheel Walker Four Wheel Walker Straight Cane Manual Wheelchair M2 PT-IP Current Condition Start: 08/17/18 12:23 Freq: NEEDED Status: Active Protocol: Document 08/17/18 10:50 AB (Rec: 08/17/18 12:34 AB [id number]) Physical Therapy Current Condition Current Condition Evaluation Date 08/17/18 Treatment Diagnosis s/p L3-4, 4-5, L5-S1 fusion/ lami; difficulty in walking Onset Date 08/16/18 Precautions Lumbar Precautions Log Roll No Twisting Limit Bending Lifting Restriction of 10 lbs Gait Belt above Incisional Area M3 PT-IP Subjective Start: 08/17/18 12:23 Freq: NEEDED Status: Active Protocol: Document 08/17/18 10:50 AB (Rec: 08/17/18 12:34 AB [id number]) Subjective Physical Therapy Visit Type Type Initial Evaluation Visit Start Time 10:50 Visit Stop Time 11:22 Total Visit Minutes 32 Number of MANDREL MAKER Visits 0 Therapy Pain Assessment Pain When Pain Assessed At Rest Pain Present Pain Present Pain Reported Location Lower Back Scale Used unable to state pain scale Pain Behaviors Moaning Restlessness M4 PT-IP Mobility and Gait Start: 08/17/18 12:23 Freq: NEEDED Status: Active Protocol: Document 08/17/18 10:50 AB (Rec: 08/17/18 12:34 AB [id number]) PT-Bed Mobility Assessment Rolling Type of Rolling Log Rolling Level of Assist Maximal Assistance 2 Person Assistance Supine to Sit Supine to Sit Maximum Assistance 2 Person Assistance Bedrails Sit to Supine Sit to Supine Maximum Assistance 2 Person Assistance Scooting Scooting to Edge of Bed Dependent Scooting Up and Down in Bed Dependent PT-Transfer Assessment Comments Mobility Comments pt initially refused PT. came to check back on pt and nurse stated that pt really nees to move. found pt supine ni bed with spouse in room. pt required constant cues to keep eyes open. has difficulty following directs. nurse stated that she needs to work on pt's incision dressing. pt requires 2 person max A x 2 for supine to sit. pt required max A to maintain sitting balance on EOB with increase posterior leaning. requires max cues with all tasks. pt tolerated ~ 5 min sitting on EOB. assisted back in supine. pt is dependent with sit to supine. positioned pt in bed. call light and table placed within reach. Gait Assessment Comments Gait Comments unable at this time PT-Balance Assessment Sitting Balance and Reactions Static Sitting Balance Ability Poor Dynamic Sitting Balance Ability Poor M5 PT-IP Objective Assessments Start: 08/17/18 12:23 Freq: NEEDED Status: Active Protocol: Document 08/17/18 10:50 AB (Rec: 08/17/18 12:34 AB [id number]) Orientation Orientation/Cognition Level of Alertness Lethargic Orientation Place Safety Awareness Decreased Safety Awareness Memory Description Short Term Impaired Buffer Nickel Impaired Gross Range of Motion Lower Extremity ROM Assessment Within Functional Limits Strength Lower Extremity Strength Assessment Bilaterally Impaired M6 PT-IP Treatment Start: 08/17/18 12:23 Freq: NEEDED Status: Active Protocol: Document 08/17/18 10:50 AB (Rec: 08/17/18 12:34 AB [id number]) Physical Therapy Treatment Education Education Provided Precautions Post-Op Packet Safety M7 PT-IP Assessment and Plan Start: 08/17/18 12:23 Freq: NEEDED Status: Active Protocol: Document 08/17/18 10:50 AB (Rec: 08/17/18 12:34 AB [id number]) PT Summary Assessment and Plan Potential Rehabilitation Potential Fair Status of Condition at Evaluation Evolving Summary Assessment Summary pt was lethargic this morning and unable to do much activity . will continue to assess. Goals Bed Mobility Goal Standby Assistance Transfer Goal Standby Assistance Gait Goal Standby Assistance Front Wheel Walker Gait Distance 50 Days to Meet Goals 5 Frequency of Treatment Frequency Of Treatment Twice a Day Treatment Plan Physical Therapy Treatment Plan Bed Mobility Training Transfer Training Gait Training Therapeutic Exercise Balance Retraining Post Op Education Discharge Planning Hot or Cold Pack Neuromuscular Re-ed Coordination Retraining Manual Therapy Other Recommendations and Next Treatment transfers, ambulation Focus Recommendations To Nursing Amount of Assist Needed Total Assistance Mechanical Lift Discharge Recommendations PT Discharge Recommendations SNF Rehab
--- NOTE | 2018-08-17 11:01 | CM.DANOTE ---
DCP: Case received, EMR reviewed and met with patient. Some information was obtained from her , Raymond. Introduced self and role. DCP template completed with information currently available. Patient is a 73 year old female who admitted yesterday afternoon to the care of the hospitalist team. PCP: Dr. Naranjo. payer: confirmed: Medicare/[employer]. Patient came to hospital for procedure. Had L3-4, L4-5, L5-S1 Postero Interbody Fusion. Patient has had history of chronic back pain. Had a fall on 06/08, which exacerbated her back pain. Met briefly with patient, jacinda mccarty. Had originally stated that she may want skilled rehab, but did not offer any further information. Called , Raymond. He stated that she uses a walker at home, and has been independent. Mentioned custodial briefly. He stated that she is currently going to outpatient physical therapy at [facility]. Let him know, will see how she does with physical therapy before making determination. P: DCP to follow closely. Will collaborate with physical therapy to see if she can go home versus skilled. Other option could be home health. Nel Chavarria RN/Airport Guide
--- NOTE | 2018-08-17 13:06 | PC.NURSE ---
Pt continues to express that she is in pain Oh God, [employer]ep[employer] Creepers, and moving self in bed, making moaning noises. However does not respond coherently to pain scale number and seems somnolent at times, other times briefly awake. Knows that she is at [facility], not able to follow directions or sustain focus when working with PT. Deferred until this afternoon. Dangled on side of bed with PT - not able to support herself. Dressing clean, dry but needing reinforcement as it is coming apartPA aware of pt's status - plan to review in am. Not initiating actions - given assistance to feed herself by setting up tray but does not continue to eat without prompting. O2 sats = 94% on RA. IV saline locked. Advised PA of pt's inability to maintain focus and stay away. Med changed to Dilaudid PO 2mg for 1100 dosing but pt continues to squirm in bed and moan that she is in pain. Ate small amts for lunch and breakfast. Taking sips of fluid when prompting. Given tylenol for temp of 102 at 1200 - 100.2 after administration. Pt mostly sleeping.
--- NOTE | 2018-08-17 15:05 | PT.IPTN ---
Current Diagnoses Esophageal obstruction (08/16/18) Other spondylosis with radiculopathy, lumbar region (08/16/18) Spinal stenosis, lumbar region with neurogenic claudication (08/16/18) Surgery Performed Operation Date: 08/16/18 07:45 Actual Procedures p L3-4,L4-5,L5-S1 TLIF w/Posterior Instru. - Robin Polk MD Physical Therapy Treatment Note M2 PT-IP Current Condition Start: 08/17/18 12:23 Freq: NEEDED Status: Active Protocol: Document 08/17/18 10:50 AB (Rec: 08/17/18 12:34 AB [id number]) Physical Therapy Current Condition Current Condition Evaluation Date 08/17/18 Treatment Diagnosis s/p L3-4, 4-5, L5-S1 fusion/ lami; difficulty in walking Onset Date 08/16/18 Precautions Lumbar Precautions Log Roll No Twisting Limit Bending Lifting Restriction of 10 lbs Gait Belt above Incisional Area M3 PT-IP Subjective Start: 08/17/18 12:23 Freq: NEEDED Status: Active Protocol: Document 08/17/18 15:05 AB (Rec: 08/17/18 16:12 AB [id number]) Subjective Physical Therapy Visit Type Type Treatment Note Visit Start Time 15:05 Visit Stop Time 15:32 Total Visit Minutes 27 Number of NETBACKUP ADMINISTRATOR Visits 0 Physical Therapy Visit Comments Patient Comments pt agreed to get up Therapy Pain Assessment Pain When Pain Assessed At Rest Pain Present Pain Present Pain Reported Location Lower Back Intensity 10 Scale Used Numeric (1 - 10) Pain Behaviors Moaning Restlessness Pain Management Techniques Timing of Activity with Medications M4 PT-IP Mobility and Gait Start: 08/17/18 12:23 Freq: NEEDED Status: Active Protocol: Document 08/17/18 15:05 AB (Rec: 08/17/18 16:12 AB [id number]) PT-Bed Mobility Assessment Rolling Type of Rolling Log Rolling Level of Assist Maximal Assistance 2 Person Assistance Supine to Sit Supine to Sit 2 Person Assistance Scooting Scooting to Edge of Bed Maximum Assistance PT-Transfer Assessment Sit to and From Stand Sit to and from Stand Maximum Assistance 2 Person Assistance Use of Upper Extremities Equipment Transfer Assistive Device Gait Belt Front Wheeled Walker Orthotic/Prosthetic Devices or Brace: No Transfers Transfer Destination Chair Transfer Technique Stand Pivot Transfer Ability Level of Assist Maximum Assistance 2 Person Assistance Use of Upper Extremities Comments Mobility Comments pt continues to have confusion but able to follow 1 step commands but with repetitions. pt complete supine to sit max A x 2 and max cues. pt was able to sit on EOB with initial mod A but after positioning and instructing pt , pt was able to maintain sitting balance with min A. pt completed sit to stand from EOB max A and max cues. completed stand step pivot transfer using FWW max A x 2 and max cues with (+) B knee buckling. pt positioned on chair. call light and table placed within reach. informed nurse regarding need for chair alarm and mechanical lift for transfers. supine BP prior to mobilization: 111/58 sitting on EOB: 113/58 after transfers sitting on chair: 129/48 M5 PT-IP Objective Assessments Start: 08/17/18 12:23 Freq: NEEDED Status: Active Protocol: Document 08/17/18 10:50 AB (Rec: 08/17/18 12:34 AB [id number]) Orientation Orientation/Cognition Level of Alertness Lethargic Orientation Place Safety Awareness Decreased Safety Awareness Memory Description Short Term Impaired Lacing Presser Impaired Gross Range of Motion Lower Extremity ROM Assessment Within Functional Limits Strength Lower Extremity Strength Assessment Bilaterally Impaired M6 PT-IP Treatment Start: 08/17/18 12:23 Freq: NEEDED Status: Active Protocol: Document 08/17/18 15:05 AB (Rec: 08/17/18 16:12 AB [id number]) Physical Therapy Treatment Education Education Provided Precautions Safety M7 PT-IP Assessment and Plan Start: 08/17/18 12:23 Freq: NEEDED Status: Active Protocol: Document 08/17/18 15:05 AB (Rec: 08/17/18 16:12 AB [id number]) PT Summary Assessment and Plan Potential Rehabilitation Potential Fair Summary Impairments Pain ROM Strength Balance Coordination Sensation Tone Cognition Bed Mobility Transfers Gait Activity Tolerance Progress Towards Goals Slow Progress due to Pain Slow Progress due to Activity Tolerance Assessment Summary pt requiring 2 person assist with mobility and with (+) B knee buckling during transfer. pt will require SNF rehab to improve strength and increase mobility. Goals Bed Mobility Goal Standby Assistance Transfer Goal Standby Assistance Gait Goal Standby Assistance Front Wheel Walker Gait Distance 50 Days to Meet Goals 5 Frequency of Treatment Frequency Of Treatment Twice a Day Treatment Plan Physical Therapy Treatment Plan Bed Mobility Training Transfer Training Gait Training Therapeutic Exercise Balance Retraining Post Op Education Discharge Planning Hot or Cold Pack Neuromuscular Re-ed Coordination Retraining Manual Therapy Other Recommendations and Next Treatment transfers, ambulation Focus Recommendations To Nursing Amount of Assist Needed Total Assistance Mechanical Lift Discharge Recommendations PT Discharge Recommendations SNF Rehab
--- NOTE | 2018-08-17 16:18 | OT.IP.EVAL ---
Current Diagnoses Esophageal obstruction (08/16/18) Other spondylosis with radiculopathy, lumbar region (08/16/18) Spinal stenosis, lumbar region with neurogenic claudication (08/16/18) Surgery Performed Operation Date: 08/16/18 07:45 Actual Procedures p L3-4,L4-5,L5-S1 TLIF w/Posterior Instru. - Robin Polk MD Past Medical History (Last Updated 08/09/18 @ 11:04 by Nasrin Capps, RN) Angioedema (Acute) Edema (Acute) Esophageal stricture (Acute) H/O: hysterectomy (Acute ~1986) Hx of herpes labialis (Acute) Hyperlipidemia (Acute) Hypokalemia (Acute) Leukocytosis (Acute) Osteopenia (Acute) Abnormal heart rhythm (Acute) COPD (chronic obstructive pulmonary disease) (Acute) Diabetes (Acute) Equinus contracture of right ankle (Acute) Fibromyalgia (Acute) GERD (gastroesophageal reflux disease) (Acute) History of MRSA infection (Acute) Hypothyroidism (Acute) Osteoarthritis of right midfoot (Acute) Peripheral neuropathy (Acute) Right foot pain (Acute) Skin cancer (Acute) Wheezing (Acute) Surgical History (Last Updated 08/09/18 @ 11:04 by Nasrin Capps, RN) History of arthroplasty of left knee (Acute ~09/2009) History of bilateral carpal tunnel release (Acute ~2003) History of gastric bypass (Acute ~2004) Hx of appendectomy (Acute ~1955) Hx of bladder repair surgery (Acute ~2015) Hx of cholecystectomy (Acute ~1980) Hx of foot surgery (Acute ~01/2018) Hx of left breast biopsy (Acute ~2007) Hx of repair of left rotator cuff (Acute ~2014) Hx of repair of right rotator cuff (Acute ~2006) Occupational Therapy Inpatient Evaluation/Re-Eval M1 PT/OT-IP Prior Functional Status Start: 08/17/18 15:39 Freq: NEEDED Status: Active Protocol: Document 08/17/18 15:40 [facility] (Rec: 08/17/18 16:18 [facility] [id number]) Medical Review Prior Functional Status Medical History Reviewed Yes Communication Pt is lethargic, this PM able to follow command one step commands better per PT. Mobility and Gait per spouse: pt is independent with all mobilities and ambulation using 4WW indoors/ outdoors Activities of Daily Living and IADL's Pt states has been independent to do all ADL's however when asked about IADL's, pt falling asleep. Social History Household Members spouse Living Arrangements House Number of Floors (Floors) One Floor Number of Stairs To Enter/Railing? 2 steps to enter with L rail ascending Home Environment Standard Height Toilet Walk in Shower Tub/Shower Home Equipment Front Wheel Walker Four Wheel Walker Straight Cane Manual Wheelchair M2 OT-IP Current Condition Start: 08/17/18 15:39 Freq: Status: Active Protocol: Document 08/17/18 15:40 [facility] (Rec: 08/17/18 16:18 [facility] [id number]) Occupational Therapy Current Condition Current Condition Evaluation Date 08/17/18 Treatment Diagnosis Lumbar stenosis Diagnosis Onset Date 08/16/18 Post Operative Precautions Lumbar Precautions Log Roll No Twisting Limit Bending Lifting Restriction of 10 lbs Gait Belt above Incisional Area M3 OT- IP Subjective and Pain Start: 08/17/18 15:39 Freq: Status: Active Protocol: Document 08/17/18 15:40 [facility] (Rec: 08/17/18 16:18 [facility] [id number]) OT- Subjective Occupational Therapy Visit Type Type Initial Evaluation Visit Start Time 15:09 Visit Stop Time 15:32 Total Visit Minutes 23 Occupational Therapy Visit Comments Patient Comments Pt agreeable to get up. OT Pain Assessment Pain When Pain Assessed At Rest Pain Present Pain Present Pain Reported Location Lower Back Intensity 10 M4 OT- IP ADL's Start: 08/17/18 15:39 Freq: Status: Active Protocol: Document 08/17/18 15:40 [facility] (Rec: 08/17/18 16:18 [facility] [id number]) OT ADL-Dressing General Eval Lower Body Dressing Ability Total Assistance Comments OT Dressing Comments Pt dependent for LB dressing at this time. OT ADL-Toileting Comments OT Toileting Comments Pt has catheter. M6 OT- IP Functional Cognition Start: 08/17/18 15:39 Freq: Status: Active Protocol: Document 08/17/18 15:40 [facility] (Rec: 08/17/18 16:18 [facility] [id number]) Cognitive Factors Limiting Selfcare Function Cognitive Ability Level of Alertness Alert Confusional State Patient Orientation Name Attention Span Ability Capable of Focused Attention Unable to Sustain Attention Ability to Follow Commands Able to Follow One Step Commands with Increased Time Able to Follow One Step Commands with Repetition Memory Description Short Term Impaired Safety Awareness Decreased Recall of Precautions Decreased Ability to Apply Precautions Cognitive Comments Cognitive Assessment Comments Pt need step by step cues and only able to recall 1/3 back precautions after education. M7 OT- IP Mobility and Balance Start: 08/17/18 15:39 Freq: Status: Active Protocol: Document 08/17/18 15:40 [facility] (Rec: 08/17/18 16:18 [facility] [id number]) OT- Bed Mobility Assessment Rolling Type of Rolling Roll to Right Level of Assistance Maximum Assistance 2 Person Assistance Supine to Sit Supine to Sit Assist Maximum Assistance 2 Person Assistance Scooting Scooting to Edge of Bed Maximum Assistance 2 Person Assistance OT-Transfer Assessment Sit to and From Stand Sit to and from Stand Maximum Assistance 2 Person Assistance Transfers Transfer Ability Maximum Assistance 2 Person Assistance Technique Transfer Destination Chair Transfer Technique Stand Pivot Devices Transfer Assistive Devices Gait Belt Front Wheeled Walker Comments Mobility Comments MAX A x2 to log rolling and supine to sit. Pt trying to assist but still needing MAX A x 2. Initially RLE bucklings and then both buckle at the end while transferring to recliner with MAX A X 2, assist for balance, FWW guidance, MAX vc for safety , and balance. BP supine 111/58, sitting 113/58 and after transfer to recliner 129/48. At this time recommend mechanical lift for transfers for nursing staff. OT- Balance Assessment Sitting Balance and Reactions Static Sitting Balance Ability Poor Dynamic Sitting Balance Ability Poor Standing Balance and Reactions Static Standing Balance Ability Poor Dynamic Standing Balance Ability Poor Comments Other Balance Tests/Deviations/Treatment Pt needign from MODA initially : to ZHENG for sitting balance. M8 OT- IP Objective Assessments Start: 08/17/18 15:39 Freq: Status: Active Protocol: Document 08/17/18 15:40 [facility] (Rec: 08/17/18 16:18 [facility] [id number]) OT Gross Range of Motion Upper Extremity Range of Motion Assessment Within Functional Limits OT Strength Comments Strength Comments BUE 4/5 M9 OT- IP Assessment and Plan Start: 08/17/18 15:39 Freq: Status: Active Protocol: Document 08/17/18 15:40 [facility] (Rec: 08/17/18 16:18 [facility] [id number]) OT Summary Assessment and Plan Potential Rehabilitation Potential Good Analytic Complexity at Evaluation Low Summary OT Impairments Pain Strength Balance Functional Cognition Functional Mobility Self-Feeding Grooming Dressing Toileting Bathing Toilet Transfers Shower Transfers Progress Towards Goals Slow Progress due to Pain Slow Progress due to Medical Issues Slow Progress due to Activity Tolerance Slow Progress due to Cognition Assessment Summary Pt low complexity and main barrier Goals Grooming Goal Standby Assistance Dressing Goal Minimal Assistance Toileting Goal Moderate Assistance Bathing Goal Moderate Assistance Toilet Transfer Goal Minimal Assistance Shower Transfer Goal Moderate Assistance Days to Meet Goals 7 Frequency of Treatment Frequency Of Treatment Once a Day Treatment Plan OT Treatment Plan ADL Training Functional Cognition Training Functional Mobility Patient/Family Education Discharge Planning Other Treatment Recommendations and Next Transfer to [facility] with MODA x 2 Treatment Focus and FWW. Practice AED for LB dressing. Discharge Recommendations OT Discharge Recommendations SNF Rehab Home Equipment Needs [facility]
[2018-08-17] MEDS: DEXAMETHASONE 4 MG/ML VIAL IV (19:45)
[2018-08-17 20:00] LABS: BUN Creatinine Ratio 18.3 (6-22); Blood Urea Nitrogen 11 mg/dL (7-17); Calcium 8.3 mg/dL (8.4-10.2); Carbon Dioxide 30 mmol/L (22-32); Chloride 93 mmol/L (98-107); Estimated Glomerular Filt Rate > 60.0 mL/min (>60); Glucose 205 mg/dL (80-110); HEMOLYSIS < 15 (0-50); Potassium 3.5 mmol/L (3.4-5.1); Sodium 132 mmol/L (137-145)
[2018-08-17] MEDS: SIMVASTATIN 10 MG TABLET PO (21:30)
[2018-08-17] MEDS: SENNOSIDES 8.6 MG TABLET 17.2 MG PO (21:30)
[2018-08-18] VITALS (14 sets, daily range): BP systolic 115–145; BP diastolic 45–74; PULSE 90–117; RESP 16–20; TEMP 36.6–38.2; O2SAT 92–98; BMI 36.0
[2018-08-18] MEDS: DEXAMETHASONE 4 MG/ML VIAL IV ×4 (00:06→17:37)
--- NOTE | 2018-08-18 01:16 | PC.NURSE ---
Addendum entered by Surendra Del Castillo R.N. 08/18/18 02:46: 0220: Awake, denied pain, but having pain after turn and reposition. Linen changed due to warm pack leakage. Dressing to back also wet: dressing changed with Island dressing. Incisions are without redness or drainage. Hopkins cath care. Turned and repositioned. Medicated with Vistaril for muscle spasm and pain. Pt is alert, answers questions appropriately. Original Note: Head Chopper Note: 0015: Sleeping, arousable. Drowsy when aroused. Follows commands, but has difficulty answering questions and finding words. IV in place in lt wrist. Hopkins catheter patent, with clear light sana urine. Pt remains on continuous pulse oximetry.
[2018-08-18] MEDS: hydrOXYzine pamoate 25 MG CAPSULE PO (02:41)
[2018-08-18] MEDS: OXYCODONE IR 5 MG TABLET 10 MG PO ×3 (03:34→20:48)
[2018-08-18] MEDS: LEVOTHYROXINE 75 MCG TABLET PO (06:07)
[2018-08-18] MEDS: LEVOTHYROXINE 100 MCG TABLET PO (06:07)
[2018-08-18] MEDS: FLUTICASONE/SALMETEROL 100/50 14 PUFF DISKUS 2 PUFF INH ×2 (07:58→17:35)
[2018-08-18] MEDS: ALBUTEROL HFA 60 PUFF/8 GM INH INH (07:58)
[2018-08-18] MEDS: ACETAMINOPHEN 325 MG TABLET 975 MG PO ×3 (08:03→20:50)
[2018-08-18] MEDS: VITAMIN E 400 UNIT CAPSULE 800 UNIT PO (08:08)
[2018-08-18] MEDS: PREGABALIN 75 MG CAPSULE 300 MG PO ×2 (08:10→20:48)
[2018-08-18] MEDS: CHOLECALCIFEROL (VITAMIN D3) 1,000 UNIT TABLET 1000 UNIT PO (08:10)
[2018-08-18] MEDS: TRIAMTERENE/HCTZ 37.5/25 TABLET 1 CAP PO (08:10)
[2018-08-18] MEDS: FERROUS SULFATE 325 MG TABLET PO (08:11)
[2018-08-18] MEDS: DOCUSATE 100 MG CAPSULE PO ×2 (08:11→20:48)
[2018-08-18] MEDS: POTASSIUM CHLORIDE 10 MEQ TAB PO ×3 (08:11→20:48)
[2018-08-18] MEDS: CYANOCOBALAMIN (VITAMIN B-12) 500 MCG TABLET 1000 MCG PO (08:11)
[2018-08-18] MEDS: METFORMIN HCL 500 MG TABLET PO ×2 (08:11→20:48)
[2018-08-18] MEDS: METOPROLOL ER 25 MG TABLET PO ×2 (08:11→20:48)
[2018-08-18] MEDS: SODIUM CHLORIDE 0.9% FLUSH 10 ML IV ×3 (08:19→20:50)
--- NOTE | 2018-08-18 08:43 | P.PN_ITS ---
Subjective Date Patient Seen: 08/18/18 Time Patient Seen: 08:37 Interval history: The patient reports she has considerable discomfort. She is answering questions appropriately this morning, is awake and conversant. The nurses yesterday reported she was writhing in pain but was unable to express herself and somnolent. We have been holding her narcotic pain reliever to try to improve her mental status. Exam Vital Signs (past 8 hours): - 08/18/18 04:05 08/18/18 08:20 Temperature 98.0 F 100.8 F H Pulse Rate 101 H 109 H Respiratory Rate 20 19 Blood Pressure 145/45 H 115/54 L Pulse Oximetry 97 96 Oxygen Delivery Method Room Air Oxygen Flow Rate 0 Narrative Exam Narrative: Facies are symmetric. The patient is moving all 4 extremities. She has intact light touch in both lower extremities. She can dorsiflex and plantar flex both toes and ankles. The wound is dressed with no drainage on the bandage and no surrounding erythema. Objective Labs Result Diagrams: 08/17/18 04:56 08/17/18 19:40 Labs: Laboratory Results - last 24 hr 08/17/18 19:40 Sodium 132 L Potassium 3.5 Chloride 93 L Carbon Dioxide 30 BUN 11 Creatinine 0.60 Estimated GFR > 60.0 BUN/Creatinine Ratio 18.3 Glucose 205 H Calcium 8.3 L Assessment & Plan Post-op Postoperative Procedures Operation Date: 08/16/18 07:45 Actual Procedures Side Surgeon p L3-4,L4-5,L5-S1 TLIF w/Posterior Instru. Robin Polk MD Postoperative day: 2 Postoperative status: febrile, marginal pain control and other (Excessive so mnolence, hyponatremia, diabetes mellitus.) Postoperative status narrative: The patient is postop day 2 status post a lumbar decompression and fusion by Dr. Polk. Her postoperative course has been marked by excessive somnolence and apparent poor pain control (although she has not been directly answering questions throughout most of her postoperative course). Last night she did indicate pain down her leg so Decadron was started. This morning she is noted to have hyponatremia although not severe and hyperglycemia likely related to her diabetes exacerbated by the Decadron. Postoperative plan: routine post-op care and ambulate Postoperative plan narrative: I will repeat her electrolytes tomorrow to monitor the mild hyponatremia. We will start an insulin sliding scale to address the hyperglycemia. We will continue to try to minimize her use of narcotics as this seems to have improved her mental status. For the time being we will continue the Decadron. Time Spent With Patient less than 15 minutes Quality VTE Deep Vein Thrombosis/Pulmonary Embolism Present on Admission: No
--- NOTE | 2018-08-18 09:19 | CM.DPC ---
Addendum entered by Nel Chavarria R.N. 08/18/18 10:52: Had spoken to Irene at [facility], and let her know that referral was sent. Met with patient's , Raymond. Brought in Medicare choice list. He stated that [facility] may be a good idea, because it's closer. Called Suzie, there was no one in admissions today, but went ahead and sent referral. Plan will be either [facility] or [facility]. Original Note: DCP Cont: Noted that physical therapy is [facility], for patient is a 2 person max assist. Met briefly with patient this morning, restless, some confusion noted. Called , Raymond, and let him know recommendations for patient to have [facility] for [facility]hab post surgery. He did not know which facility, but stated that it would be ok to start with [facility]. Went ahead and faxed clinicals to them. Went over Medicare guidelines and let him know that she would require 3 midnights stay here, which would be tomorrow that she would qualify. Let him know that she may not be ready for discharge tomorrow, regardless. P: DCP to follow closely. [facility] is recommended for patient upon discharge. Will follow up with [facility] as well. Nel Chavarria RN/Principal Engineer
--- NOTE | 2018-08-18 11:15 | PC.NURSE ---
Addendum entered by Liliam Xiao R.N. 08/18/18 14:56: Slept quite soundly from approx 1130 until 1400. Was able to transfer to chair with PT. She is still sitting in chair and denies pain at this time. Able to make needs known. Call light in reach, chair alarm on. Original Note: Shift summary: At first assessment patient was awake and alert, oriented except to date. Answered questions appropriately for the most part. Initially she was extremely restless, writhing in pain (7/10) and twisting in bed. This senior writer reminded her of her spine precautions, emphasized to avoid twisting. Medicated with 5 mg Oxycodone plus scheduled Tylenol (approx 0815). Given ice packs but she did not tolerate them. It took a while, but patient is now resting quietly in bed. Appears comfortable, pain 0 on FLACC scale. Sleeping, but awakens easily to voice/touch. SpO2 on RA 94% asleep, cont pulse ox in place for monitoring. Lungs CTA, dim bases. Dressing to mid low back C/D/I. CMS+, denies paresthesias. Hopkins to gravity, urine clear yellow. Tolerating PO's without N/V. Able to make needs known. Call light in reach, bed alarm on.
--- NOTE | 2018-08-18 11:43 | PT.IPTN ---
Current Diagnoses Esophageal obstruction (08/16/18) Other spondylosis with radiculopathy, lumbar region (08/16/18) Spinal stenosis, lumbar region with neurogenic claudication (08/16/18) Surgery Performed Operation Date: 08/16/18 07:45 Actual Procedures p L3-4,L4-5,L5-S1 TLIF w/Posterior Instru. - Robin Polk MD Physical Therapy Treatment Note M2 PT-IP Current Condition Start: 08/17/18 12:23 Freq: NEEDED Status: Active Protocol: Document 08/17/18 10:50 AB (Rec: 08/17/18 12:34 AB [id number]) Physical Therapy Current Condition Current Condition Evaluation Date 08/17/18 Treatment Diagnosis s/p L3-4, 4-5, L5-S1 fusion/ lami; difficulty in walking Onset Date 08/16/18 Precautions Lumbar Precautions Log Roll No Twisting Limit Bending Lifting Restriction of 10 lbs Gait Belt above Incisional Area M3 PT-IP Subjective Start: 08/17/18 12:23 Freq: NEEDED Status: Active Protocol: Document 08/18/18 09:46 [facility] (Rec: 08/18/18 11:43 [facility]B [id number]) Subjective Physical Therapy Visit Type Type Treatment Note Visit Start Time 09:46 Visit Stop Time 10:04 Total Visit Minutes 18 Number of CUSTOMER SERVICE ENGINEER Visits 1 Physical Therapy Visit Comments Patient Comments pt agreed to get up Therapy Pain Assessment Pain When Pain Assessed At Rest Pain Present Pain Present Pain Reported Location Lower Back Intensity 6 Scale Used Numeric (1 - 10) Pain Behaviors Moaning Restlessness Pain Management Techniques Timing of Activity with Medications M4 PT-IP Mobility and Gait Start: 08/17/18 12:23 Freq: NEEDED Status: Active Protocol: Document 08/18/18 09:46 [facility] (Rec: 08/18/18 11:43 [facility] [id number]) PT-Bed Mobility Assessment Rolling Type of Rolling Log Rolling Level of Assist Maximal Assistance 1 Person Assistance Supine to Sit Supine to Sit Maximum Assistance 2 Person Assistance Head of Bed Elevated Bedrails Sit to Supine Sit to Supine Maximum Assistance 2 Person Assistance Scooting Scooting to Edge of Bed Moderate Assistance Scooting Up and Down in Bed Dependent PT-Transfer Assessment Sit to and From Stand Sit to and from Stand Moderate Assistance 1 Person Assistance Use of Upper Extremities Equipment Transfer Assistive Device Gait Belt Front Wheeled Walker Orthotic/Prosthetic Devices or Brace: No Transfers Transfer Destination Bed Transfer Ability Level of Assist Maximum Assistance 2 Person Assistance Use of Upper Extremities Comments Mobility Comments Pt with less confusion today but pain continues to be a distraction. Pt required Max A for LR and supine to sit but was able to participate with scooting to EOB requiring Mod A. Pt also improved with sit- stand requiring Mod A x1. Gait Assessment Comments Gait Comments unable at this time M5 PT-IP Objective Assessments Start: 08/17/18 12:23 Freq: NEEDED Status: Active Protocol: Document 08/17/18 10:50 AB (Rec: 08/17/18 12:34 AB [id number]) Orientation Orientation/Cognition Level of Alertness Lethargic Orientation Place Safety Awareness Decreased Safety Awareness Memory Description Short Term Impaired [facility] Impaired Gross Range of Motion Lower Extremity ROM Assessment Within Functional Limits Strength Lower Extremity Strength Assessment Bilaterally Impaired M6 PT-IP Treatment Start: 08/17/18 12:23 Freq: NEEDED Status: Active Protocol: Document 08/17/18 15:05 AB (Rec: 08/17/18 16:12 AB [id number]) Physical Therapy Treatment Education Education Provided Precautions Safety M7 PT-IP Assessment and Plan Start: 08/17/18 12:23 Freq: NEEDED Status: Active Protocol: Document 08/18/18 09:46 [facility] (Rec: 08/18/18 11:43 [facility]B [id number]) PT Summary Assessment and Plan Summary Impairments Pain ROM Strength Balance Coordination Sensation Tone Cognition Bed Mobility Transfers Gait Activity Tolerance Progress Towards Goals Slow Progress due to Pain Slow Progress due to Activity Tolerance Assessment Summary Pt continues to require 2 person assist for mobility. Pt unable to transfer to chair due to dizziness upon standing and pt was returned to supine . BP in sitting 124/63, BP in standing 122/58. Goals Bed Mobility Goal Standby Assistance Transfer Goal Standby Assistance Gait Goal Standby Assistance Front Wheel Walker Days to Meet Goals 5 Frequency of Treatment Frequency Of Treatment Twice a Day Treatment Plan Physical Therapy Treatment Plan Bed Mobility Training Transfer Training Gait Training Therapeutic Exercise Balance Retraining Post Op Education Discharge Planning Hot or Cold Pack Neuromuscular Re-ed Coordination Retraining Manual Therapy Recommendations To Nursing Amount of Assist Needed Total Assistance Mechanical Lift Discharge Recommendations PT Discharge Recommendations SNF Rehab
[2018-08-18] MEDS: INSULIN ASPART 100 UNIT/ML INSULN PEN SUBCUT ×3 (12:11→20:54)
--- NOTE | 2018-08-18 14:52 | PT.IPTN ---
Current Diagnoses Esophageal obstruction (08/16/18) Other spondylosis with radiculopathy, lumbar region (08/16/18) Spinal stenosis, lumbar region with neurogenic claudication (08/16/18) Surgery Performed Operation Date: 08/16/18 07:45 Actual Procedures p L3-4,L4-5,L5-S1 TLIF w/Posterior Instru. - Robin Polk MD Physical Therapy Treatment Note M2 PT-IP Current Condition Start: 08/17/18 12:23 Freq: NEEDED Status: Active Protocol: Document 08/17/18 10:50 AB (Rec: 08/17/18 12:34 AB [id number]) Physical Therapy Current Condition Current Condition Evaluation Date 08/17/18 Treatment Diagnosis s/p L3-4, 4-5, L5-S1 fusion/ lami; difficulty in walking Onset Date 08/16/18 Precautions Lumbar Precautions Log Roll No Twisting Limit Bending Lifting Restriction of 10 lbs Gait Belt above Incisional Area M3 PT-IP Subjective Start: 08/17/18 12:23 Freq: NEEDED Status: Active Protocol: Document 08/18/18 14:05 CLB (Rec: 08/18/18 14:52 CLB [id number]) Subjective Physical Therapy Visit Type Type Treatment Note Visit Start Time 14:05 Visit Stop Time 14:20 Total Visit Minutes 15 Number of MANAGER TRANSPORT Visits 2 Physical Therapy Visit Comments Patient Comments pt agreed to get up Therapy Pain Assessment Pain When Pain Assessed At Rest Pain Present Pain Present Denied Pain M4 PT-IP Mobility and Gait Start: 08/17/18 12:23 Freq: NEEDED Status: Active Protocol: Document 08/18/18 14:05 CLB (Rec: 08/18/18 14:52 CLB [id number]) PT-Bed Mobility Assessment Rolling Type of Rolling Log Rolling Level of Assist Maximal Assistance 1 Person Assistance Supine to Sit Supine to Sit Moderate Assistance 1 Person Assistance Head of Bed Elevated Bedrails Scooting Scooting to Edge of Bed Moderate Assistance PT-Transfer Assessment Sit to and From Stand Sit to and from Stand Minimal Assistance 1 Person Assistance Use of Upper Extremities Equipment Transfer Assistive Device Gait Belt Front Wheeled Walker Orthotic/Prosthetic Devices or Brace: No Transfers Transfer Destination Chair Transfer Technique Stand Pivot Transfer Ability Level of Assist Moderate Assistance 1 Person Assistance Use of Upper Extremities Comments Mobility Comments Pt required Mod-Max A for all mobility and increased assist to EOB with draw sheet. Gait Assessment Comments Gait Comments unable at this time M5 PT-IP Objective Assessments Start: 08/17/18 12:23 Freq: NEEDED Status: Active Protocol: Document 08/17/18 10:50 AB (Rec: 08/17/18 12:34 AB [id number]) Orientation Orientation/Cognition Level of Alertness Lethargic Orientation Place Safety Awareness Decreased Safety Awareness Memory Description Short Term Impaired Food And Beverage Checker Impaired Gross Range of Motion Lower Extremity ROM Assessment Within Functional Limits Strength Lower Extremity Strength Assessment Bilaterally Impaired M6 PT-IP Treatment Start: 08/17/18 12:23 Freq: NEEDED Status: Active Protocol: Document 08/17/18 15:05 AB (Rec: 08/17/18 16:12 AB [id number]) Physical Therapy Treatment Education Education Provided Precautions Safety M7 PT-IP Assessment and Plan Start: 08/17/18 12:23 Freq: NEEDED Status: Active Protocol: Document 08/18/18 14:05 CLB (Rec: 08/18/18 14:52 CLB [id number]) PT Summary Assessment and Plan Summary Impairments Pain ROM Strength Balance Coordination Sensation Tone Cognition Bed Mobility Transfers Gait Activity Tolerance Progress Towards Goals Slow Progress due to Pain Slow Progress due to Activity Tolerance Assessment Summary Pt requiring less assist with bed mobility and was able to transfer to chair using stand pivot transfer with Mod A x2. Pt requires assist with walker during transfers. Pt with heavy UE support on walker. Pt did not have B knee buckling during transfer. Goals Bed Mobility Goal Standby Assistance Transfer Goal Standby Assistance Gait Goal Standby Assistance Front Wheel Walker Days to Meet Goals 5 Frequency of Treatment Frequency Of Treatment Twice a Day Treatment Plan Physical Therapy Treatment Plan Bed Mobility Training Transfer Training Gait Training Therapeutic Exercise Balance Retraining Post Op Education Discharge Planning Hot or Cold Pack Neuromuscular Re-ed Coordination Retraining Manual Therapy Other Recommendations and Next Treatment transfers, ambulation with Focus chair follow when able. Recommendations To Nursing Amount of Assist Needed 2 Person Assist Mechanical Lift Discharge Recommendations PT Discharge Recommendations SNF Rehab
[2018-08-18] MEDS: SENNOSIDES 8.6 MG TABLET 17.2 MG PO (20:48)
[2018-08-18] MEDS: SIMVASTATIN 10 MG TABLET PO (20:48)
[2018-08-19] VITALS (9 sets, daily range): BP systolic 100–155; BP diastolic 65–91; PULSE 89–108; RESP 14–18; TEMP 36.6–37; O2SAT 97–100
[2018-08-19] MEDS: DEXAMETHASONE 4 MG/ML VIAL IV ×3 (00:19→17:04)
--- NOTE | 2018-08-19 03:47 | PC.NURSE ---
Addendum entered by Surendra Del Castillo R.N. 08/19/18 06:44: 0645: Pt having 7/10 pain in lower back. Medicated with Oxycodone 2.5mg due to her recent episodes of oversedation. Original Note: Customer Account Coordinator Note: 0030: Sleeping, arousable. Pt answers questions and follows commands appropriately, but drowsy. Vital signs stable. IV in place in lt forearm. She denies pain at this time. Hopkins catheter patent, with clear dark sana urine. Room air sats are 96%. 0345: pt attempts to change her position independently. More conversational.
[2018-08-19] MEDS: FLUTICASONE/SALMETEROL 100/50 14 PUFF DISKUS 2 PUFF INH ×2 (05:08→17:22)
[2018-08-19] MEDS: LEVOTHYROXINE 100 MCG TABLET PO (05:34)
[2018-08-19] MEDS: LEVOTHYROXINE 75 MCG TABLET PO (05:34)
[2018-08-19 05:53] LABS: Carbon Dioxide 30 mmol/L (22-32); Chloride 98 mmol/L (98-107); HEMOLYSIS < 15 (0-50); Potassium 3.9 mmol/L (3.4-5.1); Sodium 135 mmol/L (137-145)
[2018-08-19] MEDS: OXYCODONE IR 5 MG TABLET 10 MG PO (06:40)
[2018-08-19] MEDS: ACETAMINOPHEN 325 MG TABLET 975 MG PO ×3 (07:52→20:44)
[2018-08-19] MEDS: PREGABALIN 75 MG CAPSULE 300 MG PO ×2 (08:10→20:45)
[2018-08-19] MEDS: MAGNESIUM HYDROXIDE 30 ML UDC PO (08:10)
[2018-08-19] MEDS: CHOLECALCIFEROL (VITAMIN D3) 1,000 UNIT TABLET 1000 UNIT PO (08:11)
[2018-08-19] MEDS: POTASSIUM CHLORIDE 10 MEQ TAB PO ×3 (08:11→20:45)
[2018-08-19] MEDS: CYANOCOBALAMIN (VITAMIN B-12) 500 MCG TABLET 1000 MCG PO (08:11)
[2018-08-19] MEDS: VITAMIN E 400 UNIT CAPSULE 800 UNIT PO (08:11)
[2018-08-19] MEDS: METFORMIN HCL 500 MG TABLET PO ×2 (08:12→20:45)
[2018-08-19] MEDS: INSULIN ASPART 100 UNIT/ML INSULN PEN SUBCUT ×4 (08:13→20:52)
[2018-08-19] MEDS: DOCUSATE 100 MG CAPSULE PO ×2 (08:13→20:44)
[2018-08-19] MEDS: METOPROLOL ER 25 MG TABLET PO ×2 (08:14→20:45)
[2018-08-19] MEDS: FERROUS SULFATE 325 MG TABLET PO (08:14)
[2018-08-19] MEDS: TRIAMTERENE/HCTZ 37.5/25 TABLET 1 CAP PO (08:14)
[2018-08-19] MEDS: SODIUM CHLORIDE 0.9% FLUSH 10 ML IV ×2 (08:16→20:46)
--- NOTE | 2018-08-19 08:49 | P.PN_ITS ---
Subjective Date Patient Seen: 08/19/18 Time Patient Seen: 08:48 Interval history: The patient reports she is feeling considerably more awake and ?with it? this morning. She is seen while performing physical therapy. Exam Vital Signs (past 8 hours): - 08/19/18 05:00 08/19/18 05:09 08/19/18 08:00 Temperature 98.6 F 98.5 F Pulse Rate 108 H 96 H Respiratory Rate 18 14 Blood Pressure 155/91 H 149/75 H Pulse Oximetry 98 97 98 Oxygen Delivery Method Room Air Oxygen Flow Rate 0 Narrative Exam Narrative: The patient is moving all 4 extremities symmetrically and is attempting to stand with physical therapy. Wound is dressed with no drainage or erythema. Objective Labs Result Diagrams: 08/17/18 04:56 08/19/18 04:56 Labs: Laboratory Results - last 24 hr 08/19/18 04:56 Sodium 135 L Potassium 3.9 Chloride 98 Carbon Dioxide 30 Assessment & Plan Post-op Postoperative Procedures Operation Date: 08/16/18 07:45 Actual Procedures Side Surgeon p L3-4,L4-5,L5-S1 TLIF w/Posterior Instru. Robin Polk MD Postoperative day: 3 Postoperative status: doing well and other (hyponatremia, diabetes mellitus) Postoperative status narrative: The patient has improved mental status with lower doses of narcotics. Her hyponatremia appears to be slightly improved this morning. Her blood sugars appear to be under better control although they are still elevated. Postoperative plan: routine post-op care and ambulate Postoperative plan narrative: We will arrange for her transfer to a residential facility tomorrow. We will continue her sliding scale insulin. We will continue a lower dose of narcotics. She is currently receiving oxycodone 2.5 mg every 3 hr. We will allow that to be repeated for a total of 5 mg if 2.5 is not sufficient. Time Spent With Patient less than 15 minutes Quality VTE Deep Vein Thrombosis/Pulmonary Embolism Present on Admission: No
--- NOTE | 2018-08-19 08:50 | CM.DPC ---
Addendum entered by Akila Mtz LPN 08/19/18 11:55: Had not heard from [facility] so did call back at 1130 to inquire re the status of the referral. Yesi/admissions liaison has now called back and states that the are not accepting admissions today as they are at capacity. She says the facility is meeting later today but that since the plan is a d/c likely tomorrow she advised to have pt pick another facility. Have updated pt and her now. Both are pleased that [facility] is also an options and they wish this to be the plan. Betty/KRISTAN is updated. She said [facility] is reviewing and she will confirm acceptance [facility] but at this point no obvious barriers are in place. DC is planned for tomorrow. Original Note: Addendum entered by Akila Mtz LPN 08/19/18 09:23: Have spoken now with pt and her , at bedside. Both say they are planning on [facility] for rehab if possible. Updated them re the referral status and will confirm plan once [facility] gives formal acceptance. Have updated KRISTAN/Irene. They will hold the referral until it is confirmed that pt will go elsewhere. Original Note: DCP: continued: Case received, EMR reviewed spoke with Dr. Rubio. He reports pt continues to need snf level care at d/c but she is not medically stable for same yet. Likely tomorrow Noted that [facility] is reviewing case and that apparently [facility] is choice #1. Left a vm for [facility] at 0815 on admission phone re status of acceptance. Called [facility] and spoke with hospital receptionist. She states the referral from yesterday was received but they do not have anyone in admissions of a Sunday. She will give the fax to Yesi/admissions when she comes in to work today and the process will unfold from there. Will confirm the snf choice today with pt and/or . P: snf tomorrow if stable for same.
--- NOTE | 2018-08-19 09:39 | PT.IPTN ---
Current Diagnoses Esophageal obstruction (08/16/18) Other spondylosis with radiculopathy, lumbar region (08/16/18) Spinal stenosis, lumbar region with neurogenic claudication (08/16/18) Surgery Performed Operation Date: 08/16/18 07:45 Actual Procedures p L3-4,L4-5,L5-S1 TLIF w/Posterior Instru. - Robin Pokl MD Physical Therapy Treatment Note M2 PT-IP Current Condition Start: 08/17/18 12:23 Freq: NEEDED Status: Active Protocol: Document 08/17/18 10:50 AB (Rec: 08/17/18 12:34 AB [id number]) Physical Therapy Current Condition Current Condition Evaluation Date 08/17/18 Treatment Diagnosis s/p L3-4, 4-5, L5-S1 fusion/ lami; difficulty in walking Onset Date 08/16/18 Precautions Lumbar Precautions Log Roll No Twisting Limit Bending Lifting Restriction of 10 lbs Gait Belt above Incisional Area M3 PT-IP Subjective Start: 08/17/18 12:23 Freq: NEEDED Status: Active Protocol: Document 08/19/18 09:17 NFW (Rec: 08/19/18 09:35 [facility] [id number]) Subjective Physical Therapy Visit Type Type Treatment Note Visit Start Time 08:55 Visit Stop Time 09:15 Total Visit Minutes 20 Number of CLOTH MERCERIZING SUPERVISOR Visits 0 Physical Therapy Visit Comments Patient Comments Pt a little tired but will to proceed with therapy. Already sitting in chair, just finishing with OT. Therapy Pain Assessment Pain When Pain Assessed At Rest Pain Present Pain Present Denied Pain M4 PT-IP Mobility and Gait Start: 08/17/18 12:23 Freq: NEEDED Status: Active Protocol: Document 08/19/18 09:17 NFW (Rec: 08/19/18 09:35 [facility] [id number]) PT-Transfer Assessment Sit to and From Stand Sit to and from Stand Minimal Assistance 1 Person Assistance Use of Upper Extremities Equipment Transfer Assistive Device Gait Belt Front Wheeled Walker Orthotic/Prosthetic Devices or Brace: No Transfers Transfer Destination Bed Chair Transfer Technique Stand Pivot Transfer Ability Level of Assist Minimal Assistance 1 Person Assistance Use of Upper Extremities Comments Mobility Comments Sit to stand transfers, min assist with cuing. Pt did not feel she had enough energy for more transfers in and out of bed. Gait Assessment Gait Gait Assistance Required: Minimum Assistance 1 Person Assist Distance (Feet) 20 Able to Maintain Weight Bearing Status Yes During Gait Assistive Devices Assistive Device Gait Belt Front Wheeled Walker Orthotic/Prosthetic Devices or Brace: No Gait Deviations General Gait Pattern Decreased Stride Length Decreased Feet Clearance Flexed Trunk Wide Based Gait Factors Limiting Gait Function Factors Limiting Gait Function Abnormal Tonal Influences Decreased Activity Tolerance Decreased Strength Incoordination Poor Balance Comments Gait Comments Shuffled gait, relies heavily onto UEs. Cuing for proper sequence in using FWW. PT-Balance Assessment Sitting Balance and Reactions Static Sitting Balance Ability Good Dynamic Sitting Balance Ability Fair M5 PT-IP Objective Assessments Start: 08/17/18 12:23 Freq: NEEDED Status: Active Protocol: Document 08/19/18 09:17 NFW (Rec: 08/19/18 09:35 [facility] [id number]) Orientation Orientation/Cognition Level of Alertness Alert Orientation Name Place Situation Comments Followed instructions well. M6 PT-IP Treatment Start: 08/17/18 12:23 Freq: NEEDED Status: Active Protocol: Document 08/19/18 09:17 NFW (Rec: 08/19/18 09:35 [facility] [id number]) Physical Therapy Treatment Exercises Exercises Ankle Pumps Seated Knee Flexion/Extension Education Education Provided Safety M7 PT-IP Assessment and Plan Start: 08/17/18 12:23 Freq: NEEDED Status: Active Protocol: Document 08/19/18 09:17 NFW (Rec: 08/19/18 09:35 [facility] [id number]) PT Summary Assessment and Plan Summary Impairments Pain ROM Strength Balance Coordination Sensation Tone Cognition Bed Mobility Transfers Gait Activity Tolerance Progress Towards Goals Slow Progress due to Activity Tolerance Assessment Summary Pt's activity tolerance improved this am. Ambulated ~ 20' min assist/ Transfered between chair and sitting at EOB. Did not have energy to proceed with bed mobilities. Relies heavily onto UE with ambulation and transitional acitivities. Goals Bed Mobility Goal Standby Assistance Transfer Goal Standby Assistance Gait Goal Standby Assistance Front Wheel Walker Days to Meet Goals 5 Frequency of Treatment Frequency Of Treatment Twice a Day Treatment Plan Physical Therapy Treatment Plan Bed Mobility Training Transfer Training Gait Training Therapeutic Exercise Balance Retraining Post Op Education Discharge Planning Hot or Cold Pack Neuromuscular Re-ed Coordination Retraining Manual Therapy Other Recommendations and Next Treatment Bed mobility activities. Focus Recommendations To Nursing Amount of Assist Needed 2 Person Assist Discharge Recommendations PT Discharge Recommendations SNF Rehab
--- NOTE | 2018-08-19 11:43 | OT.IP.TRT ---
Current Diagnoses Esophageal obstruction (08/16/18) Other spondylosis with radiculopathy, lumbar region (08/16/18) Spinal stenosis, lumbar region with neurogenic claudication (08/16/18) Surgery Performed Operation Date: 08/16/18 07:45 Actual Procedures p L3-4,L4-5,L5-S1 TLIF w/Posterior Instru. - Robin Polk MD Occupational Therapy Treatment Note M2 OT-IP Current Condition Start: 08/17/18 15:39 Freq: Status: Active Protocol: Document 08/17/18 15:40 [facility] (Rec: 08/17/18 16:18 [facility] [id number]) Occupational Therapy Current Condition Current Condition Evaluation Date 08/17/18 Treatment Diagnosis Lumbar stenosis Diagnosis Onset Date 08/16/18 Post Operative Precautions Lumbar Precautions Log Roll No Twisting Limit Bending Lifting Restriction of 10 lbs Gait Belt above Incisional Area M3 OT- IP Subjective and Pain Start: 08/17/18 15:39 Freq: Status: Active Protocol: Document 08/19/18 11:22 [facility] (Rec: 08/19/18 11:43 [facility] [id number]) OT- Subjective Occupational Therapy Visit Type Type Treatment Note Visit Start Time 08:40 Visit Stop Time 09:05 Total Visit Minutes 40 Notes Pt also seen from [id number] for LB AED training. Occupational Therapy Visit Comments Patient Comments Pt wanting to use the bsc. OT Pain Assessment Pain When Pain Assessed During Mobility Pain Present Pain Present Pain Reported Location Lower Back Intensity 7 Scale Used Numeric (1 - 10) M4 OT- IP ADL's Start: 08/17/18 15:39 Freq: Status: Active Protocol: Document 08/19/18 11:22 [facility] (Rec: 08/19/18 11:43 [facility] [id number]) OT ADL-Grooming General Evaluation Grooming Ability Standby Assistance Areas Needing Assistance Retrieving/Set-up of Grooming Items Comments OT Grooming Comments Pt able to do all grooming after set-up while sitting on BSC. OT ADL-Oral Care General Eval Oral Care Ability Independent OT ADL-Dressing General Eval Lower Body Dressing Ability Maximum Assistance Areas Needing Assistance Socks Assistive Devices Dressing Assistive Devices Microsoft Bi Architect Sock Aid Comments OT Dressing Comments Able to practice with LB aed and pt able to dinora/doff socks with vc. Also instructed on use of hospital scientist to help dinora/ doff brief/pants. OT ADL-Toileting General Evaluation Toileting Ability Maximum Assistance Areas Needing Assistance Perform Perineal Hygiene Comments OT Toileting Comments Recommended pt use of toilet aid and able to show pt pictures. MODA x1 to help stand pt with FWW and another to do all hygiene needs. M6 OT- IP Functional Cognition Start: 08/17/18 15:39 Freq: Status: Active Protocol: Document 08/19/18 11:22 [facility] (Rec: 08/19/18 11:43 [facility] [id number]) Cognitive Factors Limiting Selfcare Function Cognitive Ability Level of Alertness Alert Patient Orientation Name Place Situation Attention Span Ability Capable of Focused Attention Capable of Sustained Attention Ability to Follow Commands Able to Follow Multi-Step Commands Memory Description Short Term Impaired Safety Awareness Decreased Ability to Apply Precautions Underestimates Need for Assistance Cognitive Comments Cognitive Assessment Comments Today pt able to recall 2/3 back precautions and then at the end of the session 3/3. Pt continues to need vc for hand placement and safety for FWW. Much improved today as able to follow mulitple commands and not as groogy from last OT session. M7 OT- IP Mobility and Balance Start: 08/17/18 15:39 Freq: Status: Active Protocol: Document 08/19/18 11:22 [facility] (Rec: 08/19/18 11:43 [facility] [id number]) OT- Bed Mobility Assessment Rolling Type of Rolling Roll to Right Level of Assistance Moderate Assistance 1 Person Assistance Bedrails Supine to Sit Supine to Sit Assist Moderate Assistance 1 Person Assistance Bedrails Scooting Scooting to Edge of Bed Moderate Assistance 1 Person Assistance OT-Transfer Assessment Sit to and From Stand Sit to and from Stand Maximum Assistance 1 Person Assistance Transfers Transfer Ability Moderate Assistance 1 Person Assistance Technique Transfer Destination Bedside Commode Chair Transfer Technique Stand Pivot Devices Transfer Assistive Devices Gait Belt Front Wheeled Walker Comments Mobility Comments Much improved for bed mobility today, now just needign one person assist. Sit to stand requires MAX A to stand and after standing transfer MODA x 1 with FWW. Pt still heaviily relies on BUE on the FWW to transfer. Pt's BLE more steady today. OT- Balance Assessment Sitting Balance and Reactions Static Sitting Balance Ability Good Dynamic Sitting Balance Ability Fair Standing Balance and Reactions Static Standing Balance Ability Poor Dynamic Standing Balance Ability Poor M8 OT- IP Objective Assessments Start: 08/17/18 15:39 Freq: Status: Active Protocol: Document 08/17/18 15:40 [facility] (Rec: 08/17/18 16:18 [facility] [id number]) OT Gross Range of Motion Upper Extremity Range of Motion Assessment Within Functional Limits OT Strength Comments Strength Comments BUE 4/5 M9 OT- IP Assessment and Plan Start: 08/17/18 15:39 Freq: Status: Active Protocol: Document 08/19/18 11:22 [facility] (Rec: 08/19/18 11:43 [facility] [id number]) OT Summary Assessment and Plan Potential Rehabilitation Potential Good Analytic Complexity at Evaluation Low Summary OT Impairments Pain Strength Balance Functional Cognition Functional Mobility Self-Feeding Grooming Dressing Toileting Bathing Toilet Transfers Shower Transfers Progress Towards Goals Progressing Toward Goals Slow Progress due to Medical Issues Slow Progress due to Activity Tolerance Assessment Summary Pt low complexity and main barriers are steps and continues to need extensive assist for mobility and ADL's at this time. Current care to great for to assist. Therefore pt to benefit from skilled rehab. Goals Grooming Goal Standby Assistance Dressing Goal Minimal Assistance Toileting Goal Moderate Assistance Bathing Goal Moderate Assistance Toilet Transfer Goal Minimal Assistance Shower Transfer Goal Moderate Assistance OT-Other Goals Grooming goal while standing at sink. Days to Meet Goals 5 Frequency of Treatment Frequency Of Treatment Once a Day Treatment Plan OT Treatment Plan ADL Training Functional Cognition Training Functional Mobility Patient/Family Education Discharge Planning Other Treatment Recommendations and Next possible shower if mobility Treatment Focus continues to get better. Discharge Recommendations OT Discharge Recommendations SNF Rehab Home Equipment Needs [facility] [place], [place]
--- NOTE | 2018-08-19 12:09 | PC.NURSE ---
Addendum entered by Liliam Xiao R.N. 08/19/18 14:48: Has voided a couple times since dimas was removed, 100 ml + unmeasured void. Patient feels like she emptied her bladder. Resting comfortably in bed. Given scheduled Tylenol and she did not require Oxycodone. Light in reach, bed alarm on. Original Note: Shift summary: Awake and alert this morning. Oriented X3 and answering all questions appropriately. Reports back pain well-managed with scheduled Tylenol and occasional 2.5 mg of Oxycodone. Dressing to mid low back C/D/I. CMS++, denies paresthesias. Lungs CTA, HRR. SpO2 97% on RA. Was given MOM at breakfast time and proceeded to have an XL BM (first since admit). Has been cleared by PT for 2-person nursing transfers. Dimas dc'd at 1030 per order, denies urge to void at this time. Sitting up in chair working on lunch. Able to make needs known and calls appropriately. Light in reach, chair alarm on.
--- NOTE | 2018-08-19 13:00 | PT.IPTN ---
Current Diagnoses Esophageal obstruction (08/16/18) Other spondylosis with radiculopathy, lumbar region (08/16/18) Spinal stenosis, lumbar region with neurogenic claudication (08/16/18) Surgery Performed Operation Date: 08/16/18 07:45 Actual Procedures p L3-4,L4-5,L5-S1 TLIF w/Posterior Instru. - Robin Polk MD Physical Therapy Treatment Note M2 PT-IP Current Condition Start: 08/17/18 12:23 Freq: NEEDED Status: Active Protocol: Document 08/17/18 10:50 AB (Rec: 08/17/18 12:34 AB [id number]) Physical Therapy Current Condition Current Condition Evaluation Date 08/17/18 Treatment Diagnosis s/p L3-4, 4-5, L5-S1 fusion/ lami; difficulty in walking Onset Date 08/16/18 Precautions Lumbar Precautions Log Roll No Twisting Limit Bending Lifting Restriction of 10 lbs Gait Belt above Incisional Area M3 PT-IP Subjective Start: 08/17/18 12:23 Freq: NEEDED Status: Active Protocol: Document 08/19/18 12:43 NFW (Rec: 08/19/18 13:00 NFW [id number]) Subjective Physical Therapy Visit Type Type Treatment Note Visit Start Time 12:15 Visit Stop Time 12:40 Total Visit Minutes 35 Number of SOLID [employer]ILITY SUPERVISOR Visits 0 Physical Therapy Visit Comments Patient Comments Pt sitting in chair since this morning's session. Has been to commode twice. Catheter removed. Therapy Pain Assessment Pain When Pain Assessed During Mobility Pain Present Pain Present Pain Reported M4 PT-IP Mobility and Gait Start: 08/17/18 12:23 Freq: NEEDED Status: Active Protocol: Document 08/19/18 12:43 NFW (Rec: 08/19/18 13:00 NFW [id number]) PT-Bed Mobility Assessment Rolling Type of Rolling Log Rolling Roll to Right Level of Assist Contact Guard Assistance Sit to Supine Sit to Supine Contact Guard Assistance 1 Person Assistance Scooting Scooting to Edge of Bed Contact Guard Assistance Scooting Up and Down in Bed Standby Assistance PT-Transfer Assessment Sit to and From Stand Sit to and from Stand Contact Guard Assistance 1 Person Assistance Use of Upper Extremities Equipment Transfer Assistive Device Gait Belt Front Wheeled Walker Orthotic/Prosthetic Devices or Brace: No Transfers Transfer Destination Bed Chair Toilet Transfer Ability Level of Assist Contact Guard Assistance 1 Person Assistance Use of Upper Extremities Comments Mobility Comments Transfering safely between bed and chair with verbal cuing. CGA with returning to bed. Most difficulty with scooting side to side or up and down in bed. Gait Assessment Gait Gait Assistance Required: Minimum Assistance 1 Person Assist Distance (Feet) 140 Able to Maintain Weight Bearing Status Yes During Gait Assistive Devices Assistive Device Gait Belt Front Wheeled Walker Gait Deviations General Gait Pattern Decreased Stride Length Decreased Feet Clearance Flexed Trunk Wide Based Gait Factors Limiting Gait Function Factors Limiting Gait Function Abnormal Tonal Influences Decreased Activity Tolerance Decreased Strength Incoordination Poor Balance Comments Gait Comments Picking up feet much better in ambulation. Decrease pressure onto UEs on walker. Improved standing posture. W/ C pulled along for safety. PT-Balance Assessment Sitting Balance and Reactions Static Sitting Balance Ability Good Dynamic Sitting Balance Ability Good Standing Balance and Reactions Static Standing Balance Ability Good Dynamic Standing Balance Ability Fair Balance Tests Romberg - Comments Other Balance Tests/Deviations/Treatment Challenged in standing each : direction - did well. M5 PT-IP Objective Assessments Start: 08/17/18 12:23 Freq: NEEDED Status: Active Protocol: Document 08/19/18 09:17 NFW (Rec: 08/19/18 09:35 NF [id number]) Orientation Orientation/Cognition Level of Alertness Alert Orientation Name Place Situation Comments Followed instructions well. M6 PT-IP Treatment Start: 08/17/18 12:23 Freq: NEEDED Status: Active Protocol: Document 08/19/18 12:43 NFW (Rec: 08/19/18 13:00 [facility] [id number]) Physical Therapy Treatment Exercises Exercises Ankle Pumps Seated Knee Flexion/Extension Other Treatments Other Treatment Performed Standing august. Standing overhead reach. M7 PT-IP Assessment and Plan Start: 08/17/18 12:23 Freq: NEEDED Status: Active Protocol: Document 08/19/18 12:43 NFW (Rec: 08/19/18 13:00 [facility] [id number]) PT Summary Assessment and Plan Potential Rehabilitation Potential Good Summary Impairments Pain ROM Strength Balance Coordination Sensation Tone Cognition Bed Mobility Transfers Gait Activity Tolerance Progress Towards Goals Slow Progress due to Activity Tolerance Assessment Summary Pt's walking tolerance/ endurance improved. Fear of knees buckling therefore pulled w/c with ambulation. Able to initiate balance activities. Goals Bed Mobility Goal Standby Assistance Transfer Goal Standby Assistance Gait Goal Standby Assistance Front Wheel Walker Gait Distance 200 Days to Meet Goals 5 Frequency of Treatment Frequency Of Treatment Twice a Day Treatment Plan Physical Therapy Treatment Plan Bed Mobility Training Transfer Training Gait Training Therapeutic Exercise Balance Retraining Post Op Education Discharge Planning Hot or Cold Pack Neuromuscular Re-ed Coordination Retraining Manual Therapy Other Recommendations and Next Treatment Bed mobility specifically out Focus of bed. Recommendations To Nursing Amount of Assist Needed 1 Person Assist Discharge Recommendations PT Discharge Recommendations SNF Rehab
[2018-08-19] MEDS: MAG HYDROX/ALUM/SIMETH 30 ML UDC PO ×2 (14:31→20:51)
[2018-08-19] MEDS: SENNOSIDES 8.6 MG TABLET 17.2 MG PO (20:45)
[2018-08-19] MEDS: SIMVASTATIN 10 MG TABLET PO (20:45)
[2018-08-20] MEDS: DEXAMETHASONE 4 MG/ML VIAL IV (00:36)
[2018-08-20 01:13] VITALS: BP 136/69; PULSE 84; RESP 16; TEMP 37.1; O2SAT 99
--- NOTE | 2018-08-20 02:46 | PC.NURSE ---
Optometrist Assistant Note: 0030: Awake, vital signs stable. IV in place in lt wrist. Dressing to back is cdi. Pt assisted up to bathroom with 1 person assist. Steady on her feet and tolerated walking well.
[2018-08-20 04:00] VITALS: BP 141/78; PULSE 75; RESP 16; TEMP 36.7; O2SAT 98
[2018-08-20 05:12] VITALS: O2SAT 100
[2018-08-20] MEDS: FLUTICASONE/SALMETEROL 100/50 14 PUFF DISKUS 2 PUFF INH (05:12)
[2018-08-20 06:11] LABS: Carbon Dioxide 30 mmol/L (22-32); Chloride 95 mmol/L (98-107); HEMOLYSIS < 15 (0-50); Potassium 4.1 mmol/L (3.4-5.1); Sodium 133 mmol/L (137-145)
[2018-08-20] MEDS: LEVOTHYROXINE 75 MCG TABLET PO (06:43)
[2018-08-20] MEDS: LEVOTHYROXINE 100 MCG TABLET PO (06:43)
[2018-08-20 08:00] VITALS: BP 149/77; PULSE 82; RESP 16; TEMP 36.7; O2SAT 99
--- NOTE | 2018-08-20 08:25 | CM.DPC ---
DCP: continued: Ortho PA has now written d/c to snf orders. Checked in with pt who remains very agreeable to the plan today for [facility]. JERRICA #2 presented: pt is tucked into bed so choses to acknowledge this verbally. Given now to [facility] to scan and process. Betty/[facility] is updated, faxed the orders and the PASRR (completed earlier in the patient's stay) and confirmed that the w/c van will pick pt up at 1000. Will follow accordingly until pt leaves. Will update pt's spouse.
--- NOTE | 2018-08-20 09:16 | P.DS_ITS ---
History of Present Illness Date Patient Seen: 08/20/18 Chief complaint: [id number] Narrative: Patient seen bedside s/p L3-4, L4-5, L5-S1 Postero-lateral and posterior interbody fusion with L3-4, L4-5, L5-S1 decompressive laminectomy with bilateral facetecomies by Dr. Polk on 08/20/18. Patient is POD #4. Earlier in her stay she had difficulties with pain control and excessive somnolence, but this has improved immensely with lower narcotic dosing and the addition of decadron. She has had mild hyponatremia her entire stay, which should continued to be monitored. Discharge Providers Date of admission: 08/16/18 07:04 Primary care physician: Betzaida Naranjo PA-C Consults: 08/16/18 14:35 Consult to Occupational Therapy Evaluate & Treat Comment: Physician Instructions: Evaluate and treat Consult to Physical Therapy Evaluate & Treat Comment: Physician Instructions: Evaluate and Treat 08/19/18 08:31 Consult to Discharge Planning Routine Comment: Please set up SNF for tomorrow discharge. Discharge provider: Dionna Jacinto PA-C Discharge Date: 08/20/18 Summary Discharge Diagnosis: 1. L3-4, L4-5, L5-S1 spondylosis with radiculopathy 2. L3-4, L4-5, L5-S1 spinal stenosis 3. Lumbar scoliosis Hospital Course: Patient was admitted to the hospital s/p L3-4, L4-5, L5-S1 Postero-lateral and posterior interbody fusion with L3-4, L4-5, L5-S1 decompressive laminectomy with bilateral facetecomies on 08/16/[address] Polk. Patient tolerated the procedure well with no major complications. She was then transferred to the acute care floor and placed on the standard post-operative lumbar fusion pathway and protocol. On 08/17/17 and 08/18/17 the patient had difficulty with excessive somnolence and pain control but this resolved by 08/20/18. She did receive decadron on 08/19/18. Patient was seen by Physical therapy and recommended for discharge to a subacute rehab facility. Patient was stable and ready for discharge on 08/20/2018. Status at Discharge Cognitive/behavioral status at discharge: Alert & oriented x3 Functional status at discharge: uses cane/walker Overall status at discharge: patient is progressing back to baseline Time Spent with Patient Less than 30 minutes Exam Vital Signs (past 8 hours): - 08/20/18 04:00 08/20/18 05:12 08/20/18 08:00 Temperature 98.1 F 98.1 F Pulse Rate 75 82 Respiratory Rate 16 16 Blood Pressure 141/78 H 149/77 H Pulse Oximetry 98 100 99 Oxygen Delivery Method Room Air Oxygen Flow Rate 0 Narrative Exam Narrative: Well-developed well-nourished no acute distress alert and oriented x3. Lumbar dressing is clean dry and intact with no signs of discharge. There is no erythema and minimal generalized swelling around the incision site. She is neurovascularly intact bilateral lower extremities with full range of motion of the ankle and knee. Calves are soft and compressible. Objective Labs Result Diagrams: 08/17/18 04:56 08/20/18 05:01 Labs: Laboratory Results - last 24 hr 08/20/18 05:01 Sodium 133 L Potassium 4.1 Chloride 95 L Carbon Dioxide 30 Discharge Plan Discharge Plan Patient Disposition: SNF Transfer to: [facility] Under care of provider: facility provider I certify the postop hospital assisted care is medically necessary on a continuing basis for any conditions for which he/ she received care during this hospitalization.: Yes The receiving facility has agreed to accept transfer and provide medical tiara atment.: Yes Discharge Med Rec/Prescriptions Prescriptions: New docusate sodium 100 mg Capsule 100 mg PO BID Qty: 0 RF: 0 hydroxyzine pamoate 25 mg Capsule 25 mg PO Q4HR PRN (Reason: Nausea And Vomiting) Qty: 0 RF: 0 Novolog Flexpen U-100 Insulin 100 unit/mL Insulin Pen subcut ACHS Qty: 0 RF: 0 hydrocodone-acetaminophen 7.5-325 mg tablet 1 tab PO Q4-6H PRN (Reason: pain) Qty: 10 RF: 0 Continued vitamin E 1,000 unit Capsule 1,000 unit PO DAILY Qty: 0 RF: 0 vitamin A 10,000 unit Capsule 25,000 unit PO DAILY Qty: 0 RF: 0 cyanocobalamin (vitamin B-12) 1,000 mcg Tablet, Sublingual 1,000 mcg SUBLINGUAL DAILY Qty: 0 RF: 0 levothyroxine 175 mcg Tablet 175 mcg PO DAILY Qty: 0 RF: 0 simvastatin 10 mg Tablet 10 mg PO BEDTIME Qty: 0 RF: 0 conjugated estrogens 0.625 mg Tablet 0.3125 mg PO QWEEK Qty: 0 RF: 0 metoprolol succinate 25 mg Tablet Extended Release 24 Hr 25 mg PO BID Qty: 0 RF: 0 Lyrica 300 mg Capsule 300 mg PO BID Qty: 0 RF: 0 metformin 500 mg Tablet 500 mg PO BID RF: 0 triamterene-hydrochlorothiazid 37.5-25 mg Capsule 1 tab PO DAILY RF: 0 cholecalciferol (vitamin D3) [Vitamin D3] 1,000 unit Capsule 1,000 mg PO DAILY RF: 0 meclizine 12.5 mg Tablet 25 mg PO TID PRN (Reason: Vertigo) RF: 0 ferrous sulfate [iron] 325 mg (65 mg iron) Tablet 1 tab PO DAILY RF: 0 glucosamine sulfate 1,000 mg Capsule 1,000 mg PO DAILY RF: 0 Advair Diskus 100-50 mcg/dose Blister With Device 2 puff INHALATION BID RF: 0 potassium chloride 10 mEq Tablet Extended Release 10 meq PO TID RF: 0 ranitidine HCl 75 mg Tablet 75 mg PO DAILY RF: 0 albuterol sulfate 90 mcg/actuation Hfa Aerosol Inhaler 2 puff INHALATION BID PRN (Reason: COPD) RF: 0 Discontinued tramadol 50 mg Tablet 50 mg PO TID PRN (Reason: Pain) Qty: 0 RF: 0 Tylenol Arthritis Pain tablet 1,300 mg PO TID Qty: 0 RF: 0 hydrocodone-acetaminophen 5-325 mg Tablet 1 tab PO Q6H PRN (Reason: Pain) RF: 0 Follow up/Referrals: Robin Polk MD [Physician] - (Follow up in 10-14 days at your previously scheduled post-operative appointment.) Discharge Health Status Precautions: [place] Provider Discharge Instructions Diet: Carb-consistent/Diabetic Activity: Weightbearing as tolerated, no lifting greater than 5 lbs, no twisting, no bending Cold/Heat Therapy: Apply ice 20 minutes at a time as needed to surgical site. Other treatments: Monitor BMP and treat hyponatremia as needed. Skin/Wound/Dressing Care Report to your healthcare provider any signs of infection, such as:: chills, fever, night sweats, increased pain, unusual drainage and unusual redness Dressing: Keep dressing clean, dry, and intact. May shower with it in place but no soaking. Special Rehabilitation Services Reason for rehabilitation: Post-operative therapy Rehab type: Physical therapy and Occupational therapy Restrictions to mobility: No bending, twisting, or lifting greater than 5 lbs. Visit Report/Discharge Packet Instructions: DI for Transforaminal Lumbar Interbody Fusion Discharge Data Primary Care Provider: Betzaida Naranjo Attending Provider: Robin Polk Admit Date/Time: 08/16/18 07:04 Quality VTE Deep Vein Thrombosis/Pulmonary Embolism Present on Admission: No
--- NOTE | 2018-08-20 09:27 | PT.IPTN ---
Current Diagnoses Esophageal obstruction (08/16/18) Other spondylosis with radiculopathy, lumbar region (08/16/18) Spinal stenosis, lumbar region with neurogenic claudication (08/16/18) Surgery Performed Operation Date: 08/16/18 07:45 Actual Procedures p L3-4,L4-5,L5-S1 TLIF w/Posterior Instru. - Robin Polk MD Physical Therapy Treatment Note M2 PT-IP Current Condition Start: 08/17/18 12:23 Freq: NEEDED Status: Active Protocol: Document 08/17/18 10:50 AB (Rec: 08/17/18 12:34 AB [id number]) Physical Therapy Current Condition Current Condition Evaluation Date 08/17/18 Treatment Diagnosis s/p L3-4, 4-5, L5-S1 fusion/ lami; difficulty in walking Onset Date 08/16/18 Precautions Lumbar Precautions Log Roll No Twisting Limit Bending Lifting Restriction of 10 lbs Gait Belt above Incisional Area M3 PT-IP Subjective Start: 08/17/18 12:23 Freq: NEEDED Status: Active Protocol: Document 08/20/18 08:50 NFW (Rec: 08/20/18 09:27 NFW [id number]) Subjective Physical Therapy Visit Type Type Treatment Note Visit Start Time 08:50 Visit Stop Time 09:13 Total Visit Minutes 23 Number of AUTO BODY 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 Therapy Pain Assessment Pain When Pain Assessed At Rest Pain Present Pain Present Denied Pain M4 PT-IP Mobility and Gait Start: 08/17/18 12:23 Freq: NEEDED Status: Active Protocol: Document 08/20/18 08:50 NFW (Rec: 08/20/18 09:27 NF [id number]) PT-Bed Mobility Assessment Rolling Type of Rolling Bilateral Level of Assist Standby Assistance Supine to Sit Supine to Sit Standby Assistance Sit to Supine Sit to Supine Standby Assistance Scooting Scooting to Edge of Bed Standby Assistance Scooting Up and Down in Bed Standby Assistance PT-Transfer Assessment Sit to and From Stand Sit to and from Stand Standby Assistance Use of Upper Extremities Equipment Transfer Assistive Device Gait Belt Front Wheeled Walker Orthotic/Prosthetic Devices or Brace: No Transfers Transfer Destination Bed Chair Transfer Technique Stand Pivot Transfer Ability Level of Assist Standby Assistance Comments Mobility Comments Confidence improved with transfer abilities. Minimal cuing needed throughout. Gait Assessment Gait Gait Assistance Required: Standby Assistance Distance (Feet) 140 Able to Maintain Weight Bearing Status Yes During Gait Assistive Devices Assistive Device Gait Belt Front Wheeled Walker Orthotic/Prosthetic Devices or Brace: No Gait Deviations General Gait Pattern Within Normal Limits Comments Gait Comments Posture notably improved. Good stride length. Minimal cuing required. PT-Balance Assessment Sitting Balance and Reactions Static Sitting Balance Ability Normal Standing Balance and Reactions Static Standing Balance Ability Normal Dynamic Standing Balance Ability Good M5 PT-IP Objective Assessments Start: 08/17/18 12:23 Freq: NEEDED Status: Active Protocol: Document 08/19/18 09:17 NFW (Rec: 08/19/18 09:35 NFW [id number]) Orientation Orientation/Cognition Level of Alertness Alert Orientation Name Place Situation Comments Followed instructions well. M6 PT-IP Treatment Start: 08/17/18 12:23 Freq: NEEDED Status: Active Protocol: Document 08/20/18 08:50 NFW (Rec: 08/20/18 09:27 NFW [id number]) Physical Therapy Treatment Exercises Exercises Ankle Pumps Seated Knee Flexion/Extension Other Treatments Other Treatment Performed Abdominal bracing with functional activities. M7 PT-IP Assessment and Plan Start: 08/17/18 12:23 Freq: NEEDED Status: Active Protocol: Document 08/20/18 08:50 NFW (Rec: 08/20/18 09:27 NFW [id number]) PT Summary Assessment and Plan Potential Rehabilitation Potential Excellent Summary Impairments Pain Strength Balance Coordination Tone Activity Tolerance Progress Towards Goals Progressing Toward Goals Safe For Discharge Assessment Summary Pt reports decrease fear of knees buckling. Aware of knee strengthening exercises. Good awareness and confidence with transitional activies. Goals Bed Mobility Goal Standby Assistance Transfer Goal Standby Assistance Gait Goal Standby Assistance Front Wheel Walker Days to Meet Goals 1 Frequency of Treatment Frequency Of Treatment Discharge Treatment Plan Other Recommendations and Next Treatment Pt being transfered to SNF Focus this am. Recommendations To Nursing Amount of Assist Needed 1 Person Assist Discharge Recommendations PT Discharge Recommendations SNF Rehab
[2018-08-20] MEDS: ACETAMINOPHEN 325 MG TABLET 975 MG PO (09:51)
[2018-08-20] MEDS: DOCUSATE 100 MG CAPSULE PO (09:51)
[2018-08-20] MEDS: METOPROLOL ER 25 MG TABLET PO (09:52)
[2018-08-20] MEDS: METFORMIN HCL 500 MG TABLET PO (09:52)
[2018-08-20] MEDS: PREGABALIN 75 MG CAPSULE 300 MG PO (09:53)
[2018-08-20] MEDS: POTASSIUM CHLORIDE 10 MEQ TAB PO (09:53)
[2018-08-20] MEDS: TRIAMTERENE/HCTZ 37.5/25 TABLET 1 CAP PO (09:53)
--- NOTE | 2018-08-20 10:50 | PC.NURSE ---
Transfer: IV dc'd intact. All belongings collected and sent with patient. Transfer packet given to transport staff, including scripts. Dressing changed prior to discharge. NS bolus was not given, GWEN Jacinto was aware of that (it was for slight hyponatremia). Assisted into wheelchair and taken out by transport staff. Report called to Isha at [facility].
== END 2018-08-20 10:15 | DRG 454 ==
PROVIDERS: Orthopaedic Surgery; Admitting Provider Orthopaedic Surgery Orthopaedic Surgery of the Spine; Family Provider Physician Assistant Medical; PCP Physician Assistant Medical; Visit Provider Orthopaedic Surgery Orthopaedic Surgery of the Spine
PROC: 0SG10AJ Fusion of 2 or more Lumbar Vertebral Joints with Interbody Fusion Device, Posterior Approach, Anterior Column, Open Approach (ICD-10-PCS; principal; 2018-08-16 07:45)
DX: M48.062 Spinal stenosis, lumbar region with neurogenic claudication (principal); E87.1 Hypo-osmolality and hyponatremia; M47.26 Other spondylosis with radiculopathy, lumbar region; E11.9 Type 2 diabetes mellitus without complications; I10 Essential (primary) hypertension; M79.7 Fibromyalgia; K21.9 Gastro-esophageal reflux disease without esophagitis; Z87.891 Personal history of nicotine dependence; Z79.84 Long term (current) use of oral hypoglycemic drugs; E03.9 Hypothyroidism, unspecified; E66.9 Obesity, unspecified; Z68.36 Body mass index [BMI] 36.0-36.9, adult; T40.605A Adverse effect of unspecified narcotics, initial encounter; R40.0 Somnolence
CPT/HCPCS: 36415; 72100; 76000; 80048; 80051; 82962; 85014; 85018; 94640; 94760; 97116; 97162; 97165; 97530; 97535; C1776; C9290; J0131; J0330; J0690; J1100; J1170; J2060; J2250; J2310; J2405; J2704; J3010

== ENCOUNTER 2018-09-12 11:31 | Inpatient (IN) | payer MEDICARE, OTHER, SELFPAY ==
[2018-08-18 18:57] VITALS: BMI 36.0
[2018-09-12] VITALS (18 sets, daily range): BP systolic 98–164; BP diastolic 53–93; PULSE 64–83; RESP 10–18; TEMP 35.7–37.1; O2SAT 96–99; BMI 33.4
[2018-09-12 11:54] LABS: Add Manual Diff / Slide Review NO; Basophils Absolute Auto 100 /uL (0-100); Basophils Percent Auto 1.5 % (0-2); Eosinophils Absolute Auto 100 /uL (0-450); Eosinophils Percent Auto 1.6 % (2-4); Hematocrit 39.9 % (36-46); Hemoglobin 13.3 g/dL (12.0-16.0); Lymphocytes Absolute Auto 1500 /uL (1100-4500); Lymphocytes Percent Auto 24.2 % (25-40); Mean Corpuscular HGB Conc 33.5 % (30-36); Mean Corpuscular Hemoglobin 30.5 PG (26-34); Monocytes Absolute Auto 700 /uL (0-900); Monocytes Percent Auto 12.1 % (3-14); Neutrophils Absolute Auto 3700 /uL (1500-7000); Neutrophils Percent Auto 60.6 % (50-75); Platelet Count 331 X10^3/uL (150-400); Red Blood Cell Count 4.38 X10^6/uL (4.0-5.2); Red Cell Distribution Width 13.3 % (11.6-14.8); White Blood Cell Count 6.2 X10^3/uL (4.5-11.0)
[2018-09-12 12:12] LABS: BUN Creatinine Ratio 16.7 (6-22); Blood Urea Nitrogen 10 mg/dL (7-17); C-Reactive Protein Quant 0.8 mg/dL (<1.0); Calcium 9.8 mg/dL (8.4-10.2); Carbon Dioxide 29 mmol/L (22-32); Chloride 99 mmol/L (98-107); Estimated Glomerular Filt Rate > 60.0 mL/min (>60); Glucose 118 mg/dL (80-110); HEMOLYSIS < 15 (0-50); Potassium 4.2 mmol/L (3.4-5.1); Sodium 137 mmol/L (137-145)
[2018-09-12 12:24] LABS: Erythrocyte Sedimentation Rate 20 MM/HR (0-20)
[2018-09-12] MEDS: LACTATED RINGERS 1,000 ML 42 ML IV (14:47)
--- NOTE | 2018-09-12 15:16 | PM.PREOP ---
Pre-operative Note Interval Note History & Physical reviewed/Exam performed by Physician: Yes Changes to H&P: No
[2018-09-12] MEDS: VANCOMYCIN 1,000 MG/200 ML FROZ.PIGGY 200 MG IV ×2 (16:03→23:41)
[2018-09-12] MEDS: SODIUM CHLORIDE 0.9% 1,000 ML, GENTAMICIN 80 MG IRR (16:08)
[2018-09-12] MEDS: fentaNYL 100 MCG/2 ML INJ 50 MCG IV ×4 (16:55→17:22)
--- NOTE | 2018-09-12 16:59 | P.OP_ITS ---
Operative Date/Time/Diagnoses Date of procedure: 09/12/18 Time of procedure: 16:52 Pre-op diagnosis: Postoperative lumbar wound infection Postoperative seroma Post-op diagnosis: same Procedure & Clinicians Procedure: Irrigation debridement of lumbar wound Same procedure as scheduled: Yes Indications: 73-year-old female who presented with ongoing drainage 1 month after a lumbar laminectomy and fusion with Dr. Polk. Her wound was breaking down and not responding to the oral antibiotics. It was felt that she would have the best opportunity for healing with irrigation debridement and exploration. Risks and benefits of surgery discussed appropriate consents were obtained. Surgeon: Kashif Bautista Click Yes if Unassisted: Yes Anesthesia Type: General Operative Notes Findings: None Closure Type: primary Specimen(s): other (Wound cultures) Estimated Blood Loss (mL): 10 Procedure in detail: The patient was brought to the operating room and intubated on the stretcher. She was rolled over to the well-padded prone position on the Anoop table. A time-out was performed. The back was prepped and draped in standard sterile fashion with ChloraPrep as she has an iodine allergy. Antibiotics were held. We used an elliptical incision to remove the previous incisions with their multiple breakdown areas. We started on the right and excised all the questionable tissue and continue going deep through the superficial tissue. Approximately 2 cm deep to the incision we came upon a fluid pocket. This had approximately 10 mL of serosanguineous fluid. It was cultured and sent to microbiology. We then used a Trevino elevator for sharp incisional debridement of the superficial tissue down to the posterior muscle fascial layer. There did not appear to be any breakdown of the muscle fascia and all this was intact with no fluid connection. Once this was clean, we used pulse lavage to copiously irrigate the wound. We then turned our attention towards the left side as well. Again we came down to a fluid pocket approximately 2 cm deep to the incision. This had approxima tely 5 mL of serosanguineous fluid, which was also cultured and sent to microbiology. We then started antibiotics with vancomycin due to her history of MRSA. A Trevino elevator was again used for sharp incisional debridement of the superficial tissue all the way down to and including the muscle fascia. The fascia was intact and did not appear to have any fluid collection going past this. Once everything was adequately debrided, we used pulsatile lavage to finish cleaning out this as well as the initial incision. Deep drains were placed separately and each wound. We loosely reapproximated some of the deep fat tissue. We closed the superficial tissue in the skin. The drains were sewn down to the skin. Sterile dressing was placed. She was then rolled over, extubated, and brought back to recovery room with no complications. Complications: none Condition: stable Disposition: PACU Plan for aftercare: Inpatient. Up with physical therapy. Place her on vancomycin per pharmacy protocols. Await culture results.
[2018-09-12] MEDS: hydrOXYzine 50 MG/ML INJ 25 MG IM (17:34)
[2018-09-12] MEDS: LACTATED RINGERS 1,000 ML 125 ML IV (18:56)
[2018-09-12] MEDS: HYDROCODONE/ACET 5/325 TABLET 2 TAB PO (19:40)
[2018-09-12] MEDS: HYDROMORPHONE 1 MG INJ 0.5 MG IV ×2 (21:12→23:40)
[2018-09-12] MEDS: DOCUSATE 100 MG CAPSULE PO (21:17)
[2018-09-12] MEDS: PREGABALIN 75 MG CAPSULE 300 MG PO (21:18)
[2018-09-12] MEDS: POTASSIUM CHLORIDE 10 MEQ TAB PO (21:18)
[2018-09-12] MEDS: METFORMIN HCL 500 MG TABLET PO (21:18)
[2018-09-12] MEDS: SENNOSIDES 8.6 MG TABLET 17.2 MG PO (21:18)
[2018-09-12] MEDS: SIMVASTATIN 10 MG TABLET PO (21:19)
[2018-09-13] VITALS (12 sets, daily range): BP systolic 95–122; BP diastolic 47–62; PULSE 76–88; RESP 14–22; TEMP 37.1–37.8; O2SAT 94–96
[2018-09-13] MEDS: LACTATED RINGERS 1,000 ML 125 ML IV ×2 (03:24→12:08)
[2018-09-13] MEDS: HYDROCODONE/ACET 5/325 TABLET 2 TAB PO ×5 (03:33→23:13)
[2018-09-13] MEDS: LEVOTHYROXINE 100 MCG TABLET PO (06:07)
[2018-09-13] MEDS: LEVOTHYROXINE 75 MCG TABLET PO (06:07)
[2018-09-13] MEDS: HYDROMORPHONE 1 MG INJ 0.5 MG IV (06:08)
--- NOTE | 2018-09-13 06:51 | PC.NURSE ---
Pain effective with IV dilaudid and po norco, has not got out of bed yet. Drains have no output on right side,slight drainage on left. CDI , patient has been log rolling.
--- NOTE | 2018-09-13 07:43 | P.PN_ITS ---
Subjective Date Patient Seen: 09/13/18 Time Patient Seen: 07:42 Interval history: She is feeling better. Just some postsurgical pain in the back. Left drain 5/10 mL output, right drain 0 output Exam Vital Signs (past 8 hours): - 09/13/18 03:30 Temperature 98.9 F Pulse Rate 79 Respiratory Rate 16 Blood Pressure 109/57 L Pulse Oximetry 96 Oxygen Delivery Method Room Air Const Orientation: alert and oriented x3 Back/Spine/Pelvis Other: Dressing CDI Objective Labs Result Diagrams: 09/12/18 11:44 09/12/18 11:44 Labs: Laboratory Results - last 24 hr 09/12/18 09/12/18 11:44 11:44 WBC 6.2 RBC 4.38 Hgb 13.3 Hct 39.9 MCV 91.0 MCH 30.5 MCHC 33.5 RDW 13.3 Plt Count 331 Neut % (Auto) 60.6 Lymph % (Auto) 24.2 L [place] % (Auto) 12.1 Eos % (Auto) 1.6 L Baso % (Auto) 1.5 Neut # (Auto) 3700 Lymph # (Auto) 1500 [place] # (Auto) 700 Eos # (Auto) 100 Baso # (Auto) 100 ESR 20 Sodium 137 Potassium 4.2 Chloride 99 Carbon Dioxide 29 BUN 10 Creatinine 0.60 Estimated GFR > 60.0 BUN/Creatinine Ratio 16.7 Glucose 118 H Calcium 9.8 C-Reactive Protein 0.8 Gram stain from surgery: Left side no organisms, no white blood cells. Right side no organisms, occasional white blood cells. No growth to date on culture so far. Assessment & Plan Post-op Postoperative Procedures Operation Date: 09/12/18 15:30 Actual Procedures Side Surgeon p Incision and Drainage Wound/Spine Kashif Bautista MD I think is primarily was a postoperative seroma with superficial skin breakdown with wound dehiscence. With a normal white blood count, ESR, CRP, and normal- appearing Gram stains, I think she will be in good shape now that we have debrided and cleanly close the wound. I still want to keep her here for 1 more day of IV antibiotics in case anything grows out of the cultures. However, with her normal labs, I think we will just send her out on prophylactic oral antibiotics after that. She does have a history of MRSA and will need something that could cover this, she was on doxycycline prior to this washout, and that would be adequate.
[2018-09-13] MEDS: VANCOMYCIN 1,000 MG/200 ML FROZ.PIGGY 200 MG IV ×2 (07:50→16:23)
[2018-09-13] MEDS: VITAMIN E 400 UNIT CAPSULE 800 UNIT PO (07:51)
[2018-09-13] MEDS: PREGABALIN 75 MG CAPSULE 300 MG PO ×2 (07:51→21:34)
[2018-09-13] MEDS: CHOLECALCIFEROL (VITAMIN D3) 1,000 UNIT TABLET 1000 UNIT PO (07:51)
[2018-09-13] MEDS: METFORMIN HCL 500 MG TABLET PO ×2 (07:52→21:33)
[2018-09-13] MEDS: VITAMIN A 10,000 UNIT CAPSULE 20000 UNIT PO (07:52)
[2018-09-13] MEDS: METOPROLOL ER 50 MG TABLET PO (07:52)
[2018-09-13] MEDS: POTASSIUM CHLORIDE 10 MEQ TAB PO ×3 (07:53→21:35)
[2018-09-13] MEDS: FERROUS SULFATE 325 MG TABLET PO (07:53)
[2018-09-13] MEDS: DOCUSATE 100 MG CAPSULE PO ×2 (07:53→21:33)
[2018-09-13] MEDS: CYANOCOBALAMIN (VITAMIN B-12) 500 MCG TABLET 1000 MCG PO (07:53)
[2018-09-13] MEDS: TRIAMTERENE/HCTZ 37.5/25 TABLET 1 CAP PO (07:54)
--- NOTE | 2018-09-13 10:00 | PT.IIE ---
Current Diagnoses Infection following a procedure, unspecified, initial encounter (09/12/18) Arthrodesis status (09/12/18) Surgery Performed Operation Date: 09/12/18 15:30 Actual Procedures p Incision and Drainage Wound/Spine - Kashif Bautista MD Surgical History (Last Updated 08/09/18 @ 11:04 by Nasrin Capps RN) History of arthroplasty of left knee (Acute ~09/2009) History of bilateral carpal tunnel release (Acute ~2003) History of gastric bypass (Acute ~2004) Hx of appendectomy (Acute ~1955) Hx of bladder repair surgery (Acute ~2015) Hx of cholecystectomy (Acute ~1980) Hx of foot surgery (Acute ~01/2018) Hx of left breast biopsy (Acute ~2007) Hx of repair of left rotator cuff (Acute ~2014) Hx of repair of right rotator cuff (Acute ~2006) Medical History (Last Updated 08/09/18 @ 11:04 by Nasrin Capps RN) Abnormal heart rhythm (Acute) Angioedema (Acute) COPD (chronic obstructive pulmonary disease) (Acute) Diabetes (Acute) Edema (Acute) Equinus contracture of right ankle (Acute) Esophageal stricture (Acute) Fibromyalgia (Acute) GERD (gastroesophageal reflux disease) (Acute) H/O: hysterectomy (Acute ~1986) History of MRSA infection (Acute) Hx of herpes labialis (Acute) Hyperlipidemia (Acute) Hypokalemia (Acute) Hypothyroidism (Acute) Leukocytosis (Acute) Osteoarthritis of right midfoot (Acute) Osteopenia (Acute) Peripheral neuropathy (Acute) Right foot pain (Acute) Skin cancer (Acute) Wheezing (Acute) Physical Therapy Inpatient Evaluation/Re-Eval M1 PT/OT-IP Prior Functional Status Start: 09/13/18 13:07 Freq: NEEDED Status: Active Protocol: Document 09/13/18 13:16 [facility] (Rec: 09/13/18 13:37 [facility] [email or web address]) Medical Review Prior Functional Status Medical History Reviewed Yes Communication Independent. Mobility and Gait Able to use 4ww. Activities of Daily Living and IADL's Pt states able to do all ADl's and had facing baster jumpbasting to assist with needs. pt does her own bills and medications. Prior Functional Level (Other details) Pt had s/p L3-S1 TLIF with posteior instrumentation by Dr Joni Polk 08/16/18 and then [address] to [facility] for rehab and came homeon 09/06/18. Pt had a follow up appt. and surgeon recommended due to redness and drainage to have I and D done. Social History Household Members spouse Living Arrangements House Number of Floors (Floors) One Floor Number of Stairs To Enter/Railing? 2 with left side going up. Home Environment Standard Height Toilet Tub/Shower Home Equipment Four Wheel Walker Bedside Commode Shower Seat without Backrest Hand Held Shower Environmental Sampler Grab Bars Near Toilet Grab Bars In Shower M1 PT/OT-IP Prior Functional Status Start: 09/13/18 13:44 Freq: NEEDED Status: Active Protocol: Document 09/13/18 10:00 AB (Rec: 09/13/18 14:01 AB [id number]) Medical Review Prior Functional Status Medical History Reviewed Yes Communication able to make needs known Mobility and Gait stated that she is modified independent with all mobilities and ambulation using 4WW Activities of Daily Living and IADL's per OT notes: Pt states able to do all ADl's and had facing baster jumpbasting to assist with needs. pt does her own bills and medications. Prior Functional Level (Other details) Pt s/p L3-S1 TLIF with posteior instrumentation and then d/c to [facility]. pt stated that she went home September 06. pt found to have increase drainage on incision site and underwent I&D. Social History Household Members spouse Living Arrangements House Number of Floors (Floors) One Floor Number of Stairs To Enter/Railing? 2 SANDRA with L rail ascending Home Environment Standard Height Toilet Walk in Shower Tub/Shower Home Equipment Four Wheel Walker Bedside Commode Shower Seat without Backrest Hand Held Shower Environmental Sampler Grab Bars Near Toilet Grab Bars In Shower Additional Social History Comment has a high bed with L side handrail and pt steps up on a platform to get up on bed M2 PT-IP Current Condition Start: 09/13/18 13:44 Freq: NEEDED Status: Active Protocol: Document 09/13/18 10:00 AB (Rec: 09/13/18 14:01 AB [id number]) Physical Therapy Current Condition Current Condition Evaluation Date 09/13/18 Treatment Diagnosis s/p I&D lumbar wound; difficulty in walking Onset Date 09/12/18 Precautions Lumbar Precautions Log Roll No Twisting Limit Bending Lifting Restriction of 10 lbs Gait Belt above Incisional Area M3 PT-IP Subjective Start: 09/13/18 13:44 Freq: NEEDED Status: Active Protocol: Document 09/13/18 10:00 AB (Rec: 09/13/18 14:01 AB [id number]) Subjective Physical Therapy Visit Type Type Initial Evaluation Visit Start Time 10:00 Visit Stop Time 10:34 Total Visit Minutes 34 Number of MACHINE PULLER Visits 0 Physical Therapy Visit Comments Patient Comments pt agreeable to do PT M4 PT-IP Mobility and Gait Start: 09/13/18 13:44 Freq: NEEDED Status: Active Protocol: Document 09/13/18 10:00 AB (Rec: 09/13/18 14:01 AB [id number]) PT-Bed Mobility Assessment Rolling Type of Rolling Log Rolling Level of Assist Contact Guard Assistance Sit to Supine Sit to Supine Contact Guard Assistance Scooting Scooting to Edge of Bed Contact Guard Assistance PT-Transfer Assessment Sit to and From Stand Sit to and from Stand Contact Guard Assistance Equipment Transfer Assistive Device Gait Belt Front Wheeled Walker Orthotic/Prosthetic Devices or Brace: No Gait Assessment Gait Gait Assistance Required: Contact Guard Assist Distance (Feet) 125 Able to Maintain Weight Bearing Status Yes During Gait Assistive Devices Assistive Device Gait Belt Front Wheeled Walker Orthotic/Prosthetic Devices or Brace: Yes Gait Deviations General Gait Pattern Antalgic Decreased Stride Length Decreased Feet Clearance Factors Limiting Gait Function Factors Limiting Gait Function Decreased Activity Tolerance Decreased Strength Poor Balance PT-Balance Assessment Sitting Balance and Reactions Static Sitting Balance Ability Good Dynamic Sitting Balance Ability Good Standing Balance and Reactions Static Standing Balance Ability Fair Dynamic Standing Balance Ability Fair Device Used FWW M5 PT-IP Objective Assessments Start: 09/13/18 13:44 Freq: NEEDED Status: Active Protocol: Document 09/13/18 10:00 AB (Rec: 09/13/18 14:01 AB [id number]) Orientation Orientation/Cognition Level of Alertness Alert Orientation Name Age Birthday Month Date Year Day of Week Place Situation Safety Awareness Understands Safety Issues Memory Description No Deficits Noted Gross Range of Motion Lower Extremity ROM Assessment Within Functional Limits Strength Lower Extremity Strength Assessment Bilaterally Impaired Hip 4-/5 Knee 4-/5 Coordination Assessment Gross Coordination Gross Coordination WNL Sensation Assessment Sensation Gross Sensation WNL Muscle Tone Muscle Tone WNL Yes M6 PT-IP Treatment Start: 09/13/18 13:44 Freq: NEEDED Status: Active Protocol: Document 09/13/18 10:00 AB (Rec: 09/13/18 14:01 AB [id number]) Physical Therapy Treatment Education Education Provided Precautions Weight Bearing Status Safety M7 PT-IP Assessment and Plan Start: 09/13/18 13:44 Freq: NEEDED Status: Active Protocol: Document 09/13/18 10:00 AB (Rec: 09/13/18 14:01 AB [id number]) PT Summary Assessment and Plan Potential Rehabilitation Potential Good Status of Condition at Evaluation Stable Summary Impairments Pain ROM Strength Balance Coordination Sensation Bed Mobility Transfers Gait Activity Tolerance Assessment Summary pt requiring CGA with mobility and plans to go home with spouse to assist her. stair climbing will be completed prior to d/c. pt will benefit from homehealth PT. Goals Bed Mobility Goal Independent Transfer Goal Independent Four Wheeled Walker Gait Goal Independent Four Wheel Walker Gait Distance 250 Other Goals up/down 2 steps L rail ascending SBA Days to Meet Goals 5 Frequency of Treatment Frequency Of Treatment Twice a Day Treatment Plan Physical Therapy Treatment Plan Bed Mobility Training Transfer Training Gait Training Therapeutic Exercise Balance Retraining Post Op Education Discharge Planning Hot or Cold Pack Neuromuscular Re-ed Coordination Retraining Manual Therapy Other Recommendations and Next Treatment ambulation using 4WW Focus Recommendations To Nursing Amount of Assist Needed 1 Person Assist Discharge Recommendations PT Discharge Recommendations Home with Assistance Home Health
[2018-09-13] MEDS: FLUTICASONE/SALMETEROL 100/50 14 PUFF DISKUS 2 PUFF INH ×2 (10:33→21:33)
--- NOTE | 2018-09-13 13:37 | OT.IP.EVAL ---
Current Diagnoses Infection following a procedure, unspecified, initial encounter (09/12/18) Arthrodesis status (09/12/18) Surgery Performed Operation Date: 09/12/18 15:30 Actual Procedures p Incision and Drainage Wound/Spine - Kashif Bautista MD Past Medical History (Last Updated 08/09/18 @ 11:04 by Nasrin Capps, RN) Abnormal heart rhythm (Acute) Angioedema (Acute) COPD (chronic obstructive pulmonary disease) (Acute) Diabetes (Acute) Edema (Acute) Equinus contracture of right ankle (Acute) Esophageal stricture (Acute) Fibromyalgia (Acute) GERD (gastroesophageal reflux disease) (Acute) H/O: hysterectomy (Acute ~1986) History of MRSA infection (Acute) Hx of herpes labialis (Acute) Hyperlipidemia (Acute) Hypokalemia (Acute) Hypothyroidism (Acute) Leukocytosis (Acute) Osteoarthritis of right midfoot (Acute) Osteopenia (Acute) Peripheral neuropathy (Acute) Right foot pain (Acute) Skin cancer (Acute) Wheezing (Acute) Surgical History (Last Updated 08/09/18 @ 11:04 by Nasrin Capps RN) History of arthroplasty of left knee (Acute ~09/2009) History of bilateral carpal tunnel release (Acute ~2003) History of gastric bypass (Acute ~2004) Hx of appendectomy (Acute ~1955) Hx of bladder repair surgery (Acute ~2015) Hx of cholecystectomy (Acute ~1980) Hx of foot surgery (Acute ~01/2018) Hx of left breast biopsy (Acute ~2007) Hx of repair of left rotator cuff (Acute ~2014) Hx of repair of right rotator cuff (Acute ~2006) Occupational Therapy Inpatient Evaluation/Re-Eval M1 PT/OT-IP Prior Functional Status Start: 09/13/18 13:07 Freq: NEEDED Status: Active Protocol: Document 09/13/18 13:16 [facility] (Rec: 09/13/18 13:37 [facility] [email or web address]) Medical Review Prior Functional Status Medical History Reviewed Yes Communication Independent. Mobility and Gait Able to use 4ww. Activities of Daily Living and IADL's Pt states able to do all ADl's and had clinical trials specialist to assist with needs. pt does her own bills and medications. Prior Functional Level (Other details) Pt had s/p L3-S1 TLIF with posterior instrumentation by Dr Joni Polk 08/16/18 and then went to [facility] for rehab and came home on 09/06/18. Pt had a follow up appt. and surgeon recommended due to redness and drainage to have I and D done. Social History Household Members spouse Living Arrangements House Number of Floors (Floors) One Floor Number of Stairs To Enter/Railing? 2 with left side going up. Home Environment Standard Height Toilet Tub/Shower Home Equipment Four Wheel Walker Bedside Commode Shower Seat without Backrest Hand Held Shower Advertising Account Manager Grab Bars Near Toilet Grab Bars In Shower M2 OT-IP Current Condition Start: 09/13/18 13:07 Freq: Status: Active Protocol: Document 09/13/18 13:16 [facility] (Rec: 09/13/18 13:37 [facility] [email or web address]) Occupational Therapy Current Condition Current Condition Evaluation Date 09/13/18 Treatment Diagnosis S/p lumbar wound I and D Post Operative Precautions Lumbar Precautions Log Roll No Twisting Limit Bending Lifting Restriction of 10 lbs Gait Belt above Incisional Area M3 OT- IP Subjective and Pain Start: 09/13/18 13:07 Freq: Status: Active Protocol: Document 09/13/18 13:16 [facility] (Rec: 09/13/18 13:37 [facility] [id number]) OT- Subjective Occupational Therapy Visit Type Type Initial Evaluation Visit Start Time 10:10 Visit Stop Time 10:42 Total Visit Minutes 32 Occupational Therapy Visit Comments Patient Comments Pt agreeable to get up. Patient/Caregiver Goals Pt to be able to go home. OT Pain Assessment Pain When Pain Assessed At Rest Pain Present Pain Present Denied Pain M4 OT- IP ADL's Start: 09/13/18 13:07 Freq: Status: Active Protocol: Document 09/13/18 13:16 [facility] (Rec: 09/13/18 13:37 [facility] [email or web address]) OT ADL-Grooming General Evaluation Grooming Ability Standby Assistance Areas Needing Assistance Retrieving/Set-up of Grooming Items OT ADL-Oral Care General Eval Oral Care Ability Independent OT ADL-Dressing General Eval Lower Body Dressing Ability Maximum Assistance Areas Needing Assistance Socks OT ADL-Toileting Comments OT Toileting Comments Pt has BSC, educated at home to place next to bed if needed on on top on the toilet. Pt states has to use the bathroom 3 times at night. M5 OT- IP IADL's Start: 09/13/18 13:07 Freq: Status: Active Protocol: Document 09/13/18 13:16 [facility] (Rec: 09/13/18 13:37 [facility] [email or web address]) OT-Instrumental Activities of Daily Living Medication Management Medication Management Comments Pt does her own. Money Management Money Management Comments Pt states pays bills by computer. M6 OT- IP Functional Cognition Start: 09/13/18 13:07 Freq: Status: Active Protocol: Document 09/13/18 13:16 [facility] (Rec: 09/13/18 13:37 [facility] [email or web address]) Cognitive Factors Limiting Selfcare Function Cognitive Ability Level of Alertness Alert Patient Orientation Name Place Situation Attention Span Ability Capable of Focused Attention Capable of Sustained Attention Ability to Follow Commands Able to Follow Multi-Step Commands Memory Description No Deficits Noted Safety Awareness No Deficits Noted Problem Solving Ability No deficits Noted Cognitive Comments Cognitive Assessment Comments No deficits noted. OT- Vision and Hearing OT- Hearing Assessment OT- Hearing Assessment WFL OT- Vision Assessment Visual Acuity WFL M7 OT- IP Mobility and Balance Start: 09/13/18 13:07 Freq: Status: Active Protocol: Document 09/13/18 13:16 [facility] (Rec: 09/13/18 13:37 [facility] [id number]) OT- Bed Mobility Assessment Rolling Type of Rolling Roll to Left Level of Assistance Contact Guard Assistance Supine to Sit Supine to Sit Assist Contact Guard Assistance OT-Transfer Assessment Sit to and From Stand Sit to and from Stand Contact Guard Assistance Transfers Transfer Ability Contact Guard Assistance Technique Transfer Destination Chair Transfer Technique Stand Step Pivot Devices Transfer Assistive Devices Gait Belt Front Wheeled Walker Comments Mobility Comments CGA with FWW as a little unsteady on her feet, pt usually wears shoes at home and has a leg length discrepancy. OT- Gait Assessment Gait Gait Assistance Required: Contact Guard Assist Assistive Devices Assistive Device Front Wheeled Walker OT- Balance Assessment Sitting Balance and Reactions Static Sitting Balance Ability Normal Dynamic Sitting Balance Ability Good Standing Balance and Reactions Static Standing Balance Ability Good M8 OT- IP Objective Assessments Start: 09/13/18 13:07 Freq: Status: Active Protocol: Document 09/13/18 13:16 [facility] (Rec: 09/13/18 13:37 [facility] [email or web address]) OT Gross Range of Motion Upper Extremity Range of Motion Assessment Within Functional Limits OT Strength Upper Extremity Strength Assessment Within Functional Limits OT- Coordination Assessment Comments Coordination Comments Pt needing assist to open film on toothpaste. M9 OT- IP Assessment and Plan Start: 09/13/18 13:07 Freq: Status: Active Protocol: Document 09/13/18 13:16 [facility] (Rec: 09/13/18 13:37 [facility] [email or web address]) OT Summary Assessment and Plan Potential Rehabilitation Potential Excellent Analytic Complexity at Evaluation Low Summary OT Impairments Balance Dressing Toileting Bathing Toilet Transfers Shower Transfers Progress Towards Goals Progressing Toward Goals Assessment Summary Pt low complexity and has to assist at home. Pt already has all equipment needs and to go home when medically stable. Goals Dressing Goal Standby Assistance Toileting Goal Standby Assistance Bathing Goal Contact Guard Assistance Toilet Transfer Goal Standby Assistance Patient/Caregiver Education Goal Caregiver Independent Assisting Patient Days to Meet Goals 3 Frequency of Treatment Frequency Of Treatment Once a Day Treatment Plan OT Treatment Plan ADL Training Functional Mobility Patient/Family Education Discharge Planning Other Treatment Recommendations and Next Shower or practice LB dressing Treatment Focus . Discharge Recommendations OT Discharge Recommendations Home with Assistance Home Health
--- NOTE | 2018-09-13 15:00 | PT.IPTN ---
Current Diagnoses Infection following a procedure, unspecified, initial encounter (09/12/18) Arthrodesis status (09/12/18) Surgery Performed Operation Date: 09/12/18 15:30 Actual Procedures p Incision and Drainage Wound/Spine - Kashif Bautista MD Physical Therapy Treatment Note M2 PT-IP Current Condition Start: 09/13/18 13:44 Freq: NEEDED Status: Active Protocol: Document 09/13/18 10:00 AB (Rec: 09/13/18 14:01 AB [id number]) Physical Therapy Current Condition Current Condition Evaluation Date 09/13/18 Treatment Diagnosis s/p I&D lumbar wound; difficulty in walking Onset Date 09/12/18 Precautions Lumbar Precautions Log Roll No Twisting Limit Bending Lifting Restriction of 10 lbs Gait Belt above Incisional Area M3 PT-IP Subjective Start: 09/13/18 13:44 Freq: NEEDED Status: Active Protocol: Document 09/13/18 15:00 AB (Rec: 09/13/18 16:15 AB [email or web address]) Subjective Physical Therapy Visit Type Type Treatment Note Visit Start Time 15:00 Visit Stop Time 15:30 Total Visit Minutes 30 Number of EMERGENCY COMMUNICATIONS OFFICER Visits 0 Physical Therapy Visit Comments Patient Comments pt agreeable to do PT Therapy Pain Assessment Pain When Pain Assessed At Rest Pain Present Pain Present Pain Reported Location Lower Back Intensity 6 Scale Used Numeric (1 - 10) Pain Management Techniques Timing of Activity with Medications M4 PT-IP Mobility and Gait Start: 09/13/18 13:44 Freq: NEEDED Status: Active Protocol: Document 09/13/18 15:00 AB (Rec: 09/13/18 16:15 AB [email or web address]) PT-Bed Mobility Assessment Rolling Type of Rolling Log Rolling Level of Assist Standby Assistance Supine to Sit Supine to Sit Standby Assistance Sit to Supine Sit to Supine Standby Assistance Scooting Scooting to Edge of Bed Standby Assistance PT-Transfer Assessment Sit to and From Stand Sit to and from Stand Standby Assistance Equipment Transfer Assistive Device Gait Belt 4 Wheeled Walker Gait Assessment Gait Gait Assistance Required: Standby Assistance Distance (Feet) 300 Able to Maintain Weight Bearing Status Yes During Gait Assistive Devices Assistive Device Gait Belt 4 Wheeled Walker Gait Deviations General Gait Pattern Antalgic Factors Limiting Gait Function Factors Limiting Gait Function Decreased Activity Tolerance Decreased Strength Limited Range of Motion Pain Poor Balance Poor Safety Awareness Stair Climbing Assessment Evaluation Level of Assist On Stairs Minimal Assistance Devices Stair Climbing Assistive Devices Left Railing Technique/Endurance Stair Climbing Direction Ascend and Descend Stair Climbing Technique Step to Step Number of Steps Climbed 3 Query Text: Stair Climbing Set # Repetitions (reps) 1 M5 PT-IP Objective Assessments Start: 09/13/18 13:44 Freq: NEEDED Status: Active Protocol: Document 09/13/18 10:00 AB (Rec: 09/13/18 14:01 AB [id number]) Orientation Orientation/Cognition Level of Alertness Alert Orientation Name Age Birthday Month Date Year Day of Week Place Situation Safety Awareness Understands Safety Issues Memory Description No Deficits Noted Gross Range of Motion Lower Extremity ROM Assessment Within Functional Limits Strength Lower Extremity Strength Assessment Bilaterally Impaired Hip 4-/5 Knee 4-/5 Coordination Assessment Gross Coordination Gross Coordination WNL Sensation Assessment Sensation Gross Sensation WNL Muscle Tone Muscle Tone WNL Yes M6 PT-IP Treatment Start: 09/13/18 13:44 Freq: NEEDED Status: Active Protocol: Document 09/13/18 10:00 AB (Rec: 09/13/18 14:01 AB [id number]) Physical Therapy Treatment Education Education Provided Precautions Weight Bearing Status Safety M7 PT-IP Assessment and Plan Start: 09/13/18 13:44 Freq: NEEDED Status: Active Protocol: Document 09/13/18 15:00 AB (Rec: 09/13/18 16:15 AB [email or web address]) PT Summary Assessment and Plan Potential Rehabilitation Potential Good Summary Impairments Pain ROM Strength Balance Bed Mobility Transfers Gait Activity Tolerance Progress Towards Goals Progressing Toward Goals Assessment Summary pt doing well with mobility and able to ambulate using 4WW . required min A for stair climbing with pt c/o knee pain . offered pt to use orthotic shoes with today's session but pt refused. informed pt that plan is to use orthotic shoes for next tx session to improve stability. Pt agreed. pt will have her spouse to assist her at home. Goals Bed Mobility Goal Independent Transfer Goal Independent Four Wheeled Walker Gait Goal Independent Four Wheel Walker Gait Distance 250 Other Goals up/down 2 steps L rail ascending SBA Days to Meet Goals 5 Frequency of Treatment Frequency Of Treatment Twice a Day Treatment Plan Physical Therapy Treatment Plan Bed Mobility Training Transfer Training Gait Training Therapeutic Exercise Balance Retraining Post Op Education Discharge Planning Hot or Cold Pack Neuromuscular Re-ed Coordination Retraining Manual Therapy Other Recommendations and Next Treatment ambulation using 4WW Focus Recommendations To Nursing Amount of Assist Needed 1 Person Assist Discharge Recommendations PT Discharge Recommendations Home with Assistance Home Health
--- NOTE | 2018-09-13 15:10 | CM.IDA ---
Discharge Planning/Care Management CM Discharge Assessment Start: 09/13/18 15:03 Freq: Status: Active Protocol: Document 09/13/18 15:03 [facility] (Rec: 09/13/18 15:10 [facility] [id number]) Discharge Planning Assessment Assigned Commercial Horticulture Instructor MATEUSZ Johnson DPOA/Assigned Designee Name Raymond Ward, spouse Contact Information [phone] Advance Directives? No: Declines further information History Provided By Patient Medical Record Prior Living Arrangements House Household Members spouse Type of transporation used prior to Drives own vehicle admit Independent with ADL's Yes Is patient alert and oriented? Yes Barriers to Discharge No Comment Pt is POD#1 from I&D, cultures pending. Payer: Medicare/ [employer]. Reviewed chart. Pt is indp at her baseline, lives w/spouse. Pt had spinal surgery [address] Polk and upon f/u w/ Dr Bautista was instructed she would need I&D of infected wound. Pt had DC to [facility] upon DC from last month and went home 3.02.17. Ortho team anticpate pt will be able to return home w/po abx although cultures still pending. Therapy team have evaluated and suggest home w/ home health. This PLATING EQUIPMENT TENDER following closely and will plan to assess further and r/o need for HH/IV abx closer to DC. MATEUSZ Boyer Discharge Plan Home Transportation Arrangement Spouse Review Status In Process
[2018-09-13 16:14] LABS: Vancomycin Trough 12.5 ug/mL (10-20)
[2018-09-13] MEDS: INSULIN ASPART 100 UNIT/ML INSULN PEN SUBCUT (17:17)
[2018-09-13] MEDS: PIPERACILLIN-TAZO 3.375 GM/50 ML FROZ.PIGGY IV (18:12)
[2018-09-13] MEDS: SENNOSIDES 8.6 MG TABLET 17.2 MG PO (21:35)
[2018-09-13] MEDS: SIMVASTATIN 10 MG TABLET PO (21:37)
[2018-09-13] MEDS: SODIUM CHLORIDE 0.9% FLUSH 10 ML IV (21:37)
[2018-09-13] MEDS: ALBUTEROL HFA 60 PUFF/8 GM INH INH (21:57)
--- NOTE | 2018-09-13 22:13 | PC.NURSE ---
Addendum entered and electronically signed by Marla Martino R.N. 09/13/18 23:11: Pt had 20cc from left drain and 10cc from right drain. Original Note: Addendum entered and electronically signed by Marla Martino R.N. 09/13/18 22:18: Rose BUTLER reported at 2029 that patient had a fever of 100 orally. Pt has continued to cough clear sputum all evening and having a runny nose. Dr. Bautista was paged at 2044, and we were told to do an albuterol treatment. Original Note: Pt. is able to have pain control w/ 2 5-325 hydrocodone. BG 167,154. BP's have been low throughout the day. Pt has been using IS, has been up ambulating in chair and in the hallway.
[2018-09-14] VITALS (7 sets, daily range): BP systolic 91–124; BP diastolic 53–67; PULSE 73–90; RESP 16–20; TEMP 36.3–37.7; O2SAT 94–98
[2018-09-14] MEDS: PIPERACILLIN-TAZO 3.375 GM/50 ML FROZ.PIGGY IV ×3 (01:56→19:02)
[2018-09-14] MEDS: LEVOTHYROXINE 100 MCG TABLET PO (06:03)
[2018-09-14] MEDS: LEVOTHYROXINE 75 MCG TABLET PO (06:03)
--- NOTE | 2018-09-14 06:29 | PC.NURSE ---
NOC SHIFT: Patient doing well this shift. Vicodin 5mg tabs effective for pain control. Patient moves in and out of bed well. Hemovacs in place to either side of incision. Dressing intact, small sero-sang drainage noted to back dressing after patient laying down for period of time. Patient up walking th eunit with this RN this shift. Patient states it helps her work the pain out and keep the muscles moving. VSS, no acute distress. Patient sleeping in recliner for some of shift for comfort. Will continue to monitor.
[2018-09-14] MEDS: CHOLECALCIFEROL (VITAMIN D3) 1,000 UNIT TABLET 1000 UNIT PO (07:58)
[2018-09-14] MEDS: VITAMIN A 10,000 UNIT CAPSULE 20000 UNIT PO (07:58)
[2018-09-14] MEDS: INSULIN ASPART 100 UNIT/ML INSULN PEN SUBCUT ×2 (07:59→12:03)
[2018-09-14] MEDS: PREGABALIN 75 MG CAPSULE 300 MG PO ×2 (07:59→20:35)
[2018-09-14] MEDS: DOCUSATE 100 MG CAPSULE PO ×2 (07:59→20:37)
[2018-09-14] MEDS: FERROUS SULFATE 325 MG TABLET PO (07:59)
[2018-09-14] MEDS: CYANOCOBALAMIN (VITAMIN B-12) 500 MCG TABLET 1000 MCG PO (07:59)
[2018-09-14] MEDS: VITAMIN E 400 UNIT CAPSULE 800 UNIT PO (07:59)
[2018-09-14] MEDS: POTASSIUM CHLORIDE 10 MEQ TAB PO ×3 (07:59→20:37)
[2018-09-14] MEDS: METOPROLOL ER 50 MG TABLET PO (07:59)
[2018-09-14] MEDS: SODIUM CHLORIDE 0.9% FLUSH 10 ML IV ×3 (08:00→20:37)
[2018-09-14] MEDS: METFORMIN HCL 500 MG TABLET PO ×2 (08:01→20:37)
[2018-09-14] MEDS: HYDROCODONE/ACET 5/325 TABLET 2 TAB PO ×2 (08:11→22:59)
--- NOTE | 2018-09-14 09:00 | PT.IPTN ---
Current Diagnoses Infection following a procedure, unspecified, initial encounter (09/12/18) Arthrodesis status (09/12/18) Surgery Performed Operation Date: 09/12/18 15:30 Actual Procedures p Incision and Drainage Wound/Spine - Kashif Bautista MD Physical Therapy Treatment Note M2 PT-IP Current Condition Start: 09/13/18 13:44 Freq: NEEDED Status: Active Protocol: Document 09/13/18 10:00 AB (Rec: 09/13/18 14:01 AB [id number]) Physical Therapy Current Condition Current Condition Evaluation Date 09/13/18 Treatment Diagnosis s/p I&D lumbar wound; difficulty in walking Onset Date 09/12/18 Precautions Lumbar Precautions Log Roll No Twisting Limit Bending Lifting Restriction of 10 lbs Gait Belt above Incisional Area M3 PT-IP Subjective Start: 09/13/18 13:44 Freq: NEEDED Status: Active Protocol: Document 09/14/18 09:00 GGD (Rec: 09/14/18 12:16 GGD [id number]) Subjective Physical Therapy Visit Type Type Treatment Note Visit Start Time 08:35 Visit Stop Time 09:00 Total Visit Minutes 25 Number of PROSTHETICS LAB TECHNICIAN Visits 1 Physical Therapy Visit Comments Patient Comments Pt willing to work with therapy. M4 PT-IP Mobility and Gait Start: 09/13/18 13:44 Freq: NEEDED Status: Active Protocol: Document 09/14/18 09:00 GGD (Rec: 09/14/18 12:16 GGD [id number]) PT-Bed Mobility Assessment Rolling Type of Rolling Log Rolling Level of Assist Independent Supine to Sit Supine to Sit Independent Scooting Scooting to Edge of Bed Independent PT-Transfer Assessment Sit to and From Stand Sit to and from Stand Independent Equipment Transfer Assistive Device Gait Belt 4 Wheeled Walker Transfers Transfer Destination Chair Transfer Ability Level of Assist Standby Assistance Gait Assessment Gait Gait Assistance Required: Standby Assistance Distance (Feet) 600 Able to Maintain Weight Bearing Status Yes During Gait Assistive Devices Assistive Device Gait Belt 4 Wheeled Walker Gait Deviations General Gait Pattern Antalgic Factors Limiting Gait Function Factors Limiting Gait Function Decreased Activity Tolerance Decreased Strength Limited Range of Motion Pain Poor Balance Poor Safety Awareness Stair Climbing Assessment Evaluation Level of Assist On Stairs Standby Assistance Devices Stair Climbing Assistive Devices Left Railing Technique/Endurance Stair Climbing Direction Ascend and Descend Stair Climbing Technique Step to Step Number of Steps Climbed 3 Query Text: Stair Climbing Set # Repetitions (reps) 1 M5 PT-IP Objective Assessments Start: 09/13/18 13:44 Freq: NEEDED Status: Active Protocol: Document 09/13/18 10:00 AB (Rec: 09/13/18 14:01 AB [id number]) Orientation Orientation/Cognition Level of Alertness Alert Orientation Name Age Birthday Month Date Year Day of Week Place Situation Safety Awareness Understands Safety Issues Memory Description No Deficits Noted Gross Range of Motion Lower Extremity ROM Assessment Within Functional Limits Strength Lower Extremity Strength Assessment Bilaterally Impaired Hip 4-/5 Knee 4-/5 Coordination Assessment Gross Coordination Gross Coordination WNL Sensation Assessment Sensation Gross Sensation WNL Muscle Tone Muscle Tone WNL Yes M6 PT-IP Treatment Start: 09/13/18 13:44 Freq: NEEDED Status: Active Protocol: Document 09/13/18 10:00 AB (Rec: 09/13/18 14:01 AB [id number]) Physical Therapy Treatment Education Education Provided Precautions Weight Bearing Status Safety M7 PT-IP Assessment and Plan Start: 09/13/18 13:44 Freq: NEEDED Status: Active Protocol: Document 09/14/18 09:00 GGD (Rec: 09/14/18 12:16 GGD [id number]) PT Summary Assessment and Plan Summary Assessment Summary Pt improving with stair mobility. She was safe and stable with stairs without knee buckling. She was safe with gait with 4WW. She has a good log roll technique and understanding of LBK precautions. Pt is at base line with mobility and has no need for continue PT. Frequency of Treatment Frequency Of Treatment Discharge Recommendations To Nursing Amount of Assist Needed Standby Assistance Discharge Recommendations PT Discharge Recommendations Home with Assistance
[2018-09-14] MEDS: FLUTICASONE/SALMETEROL 100/50 14 PUFF DISKUS 2 PUFF INH ×2 (09:27→20:37)
--- NOTE | 2018-09-14 09:47 | OT.IP.TRT ---
Current Diagnoses Infection following a procedure, unspecified, initial encounter (09/12/18) Arthrodesis status (09/12/18) Surgery Performed Operation Date: 09/12/18 15:30 Actual Procedures p Incision and Drainage Wound/Spine - Kashif Bautista MD Occupational Therapy Treatment Note M2 OT-IP Current Condition Start: 09/13/18 13:07 Freq: Status: Active Protocol: Document 09/13/18 13:16 [facility] (Rec: 09/13/18 13:37 [facility] [id number]) Occupational Therapy Current Condition Current Condition Evaluation Date 09/13/18 Treatment Diagnosis S/p lumbar wound I and D Post Operative Precautions Lumbar Precautions Log Roll No Twisting Limit Bending Lifting Restriction of 10 lbs Gait Belt above Incisional Area M3 OT- IP Subjective and Pain Start: 09/13/18 13:07 Freq: Status: Active Protocol: Document 09/14/18 09:40 [facility] (Rec: 09/14/18 09:45 [facility] [id number]) OT- Subjective Occupational Therapy Visit Type Type Discharge Summary Notes Pt states has all OT equipment needs, has good family support and moving well. Therefore discharge from OT services. Document 09/14/18 09:40 [facility] (Rec: 09/14/18 09:47 [facility] [id number]) OT Summary Assessment and Plan Potential Rehabilitation Potential Excellent Analytic Complexity at Evaluation Low Summary Progress Towards Goals Goals Met Assessment Summary Pt has met all OT goals and waiting for medical clearance before going home. Therefore discharge from OT services. Discharge Recommendations OT Discharge Recommendations Home with Assistance
--- NOTE | 2018-09-14 10:24 | P.PN_ITS ---
Subjective Date Patient Seen: 09/14/18 Time Patient Seen: 10:23 Interval history: Hospital day 3, postop day 2 following lumbar wound I and D by Dr. Bautista. Patient has remained stable. Is having late well. Does have Hemovac drains to both incisions. Drainage for the past 3 shifts notes left 30, 20, 10 and right 20, 10, 0. Pain controlled well with [place]. She is currently on Zosyn IV. Wound cultures note no growth right incision and moderate gram- negative bacilli left incision. Exam Vital Signs (past 8 hours): - 09/14/18 04:00 09/14/18 07:25 09/14/18 09:28 Temperature 97.3 F L 99.8 F H Pulse Rate 73 76 90 Respiratory Rate 18 20 16 Blood Pressure 106/57 L 124/60 Pulse Oximetry 94 96 95 Oxygen Delivery Method Room Air Oxygen Flow Rate 0 Narrative Exam Narrative: Alert, oriented no acute distress sitting in bed. Back. Dressing dry without drainage or inflammation. Hemovacs in place. Legs. No calf pain or swelling. Pulses and sensation symmetrical. Objective Labs Result Diagrams: 09/12/18 11:44 09/12/18 11:44 Labs: Laboratory Results - last 24 hr 09/13/18 15:31 Vancomycin Trough 12.5 Assessment & Plan Post-op Postoperative Procedures Operation Date: 09/12/18 15:30 Actual Procedures Side Surgeon p Incision and Drainage Wound/Spine Kashif Bautista MD Plan: Will wait on final culture results to determine postop oral pain med to go home. Plan DC Hemovacs tomorrow if dry. Possible discharge home tomorrow if stable.
--- NOTE | 2018-09-14 11:19 | PC.NURSE ---
Addendum entered by Pilo Aponte R.N. 09/14/18 11:47: right side hv dc'd intact after removing one suture. parallell surgical sites slightly moist, and erythemic around incisions and across middle in between incisions. no purulent drainage, just scant moist drainage. sutures intact. applied gauze 4x4's x 8 and large tegaderm x3 to secure. left side hv tubing secured in 2 places with tape. patient tolerated well. Original Note: RIGHT HV DRAIN CAME APART, TUBING FOUND ON FLOOR BY PATIENT. CONTACTED SAUL CODY. ORDER TO DC HV ON RIGHT, WHICH IS THE HV THAT HADN'T PUT OUT ANY DRAINAGE OVERNIGHT, AND OVERALL HAS BEEN PUTTING OUT LESS THAN THE LEFT.
--- NOTE | 2018-09-14 16:27 | CM.DPNOTE ---
According to the conversation w/GWEN Hernandez this morning, po abx still expected upon pt's DC. Cultures are still pending and are expected either today or tomorrow. PT has cleared pt for return home w/family. Pt is current w/ [facility] for RN/PT/OT/FLATBED STITCHER. SHAFT REPAIRER team will plan to follow along and remain available to address any DC needs or concerns that arise. Resumption of HH services needs to be reviewed w/ pt upon DC. MATEUSZ Boyer Discharge Planning/Care Management CM Discharge Assessment Start: 09/13/18 15:03 Freq: Status: Active Protocol: Document 09/13/18 15:03 AMY (Rec: 09/13/18 15:10 AMY [id number]) Discharge Planning Assessment Assigned Process Engineering Manager MATEUSZ Johnson DPOA/Assigned Designee Name Raymond Ward, spouse Contact Information [phone] Advance Directives? No: Declines further information History Provided By Patient Medical Record Prior Living Arrangements House Household Members spouse Type of transporation used prior to Drives own vehicle admit Independent with ADL's Yes Is patient alert and oriented? Yes Barriers to Discharge No Comment Pt is POD#1 from I&D, cultures pending. Payer: Medicare/ [employer]. Reviewed chart. Pt is indp at her baseline, lives w/spouse. Pt had spinal surgery [address] Polk and upon f/u w/ Dr Bautista was instructed she would need I&D of infected wound. Pt had DC to [facility] upon DC from last month and went home 3.02.17. Ortho team anticpate pt will be able to return home w/po abx although cultures still pending. Therapy team have evaluated and suggest home w/ home health. This SHAFT REPAIRER following closely and will plan to assess further and r/o need for HH/IV abx closer to DC. MATEUSZ Boyer Discharge Plan Home Transportation Arrangement Spouse Review Status In Process
[2018-09-14] MEDS: diphenhydrAMINE 25 MG TABLET PO ×2 (17:38→23:18)
[2018-09-14] MEDS: SIMVASTATIN 10 MG TABLET PO (20:36)
[2018-09-14] MEDS: SENNOSIDES 8.6 MG TABLET 17.2 MG PO (20:36)
--- NOTE | 2018-09-14 23:02 | PC.NURSE ---
Pt has denied pain, today. BS 162 HS no novalog given. Lft drain intermittent draining, New L hand IV started, rgt hand had infiltrated. Benadryl given for cough and rhinitis. Pt states that she has allergies. Ambulates independently in hallway.
[2018-09-15 00:21] VITALS: BP 109/70; PULSE 84; RESP 20; TEMP 36.6; O2SAT 95
[2018-09-15] MEDS: PIPERACILLIN-TAZO 3.375 GM/50 ML FROZ.PIGGY IV (02:04)
[2018-09-15 04:17] VITALS: BP 101/65; PULSE 76; RESP 18; TEMP 36.6; O2SAT 94
--- NOTE | 2018-09-15 06:23 | PC.NURSE ---
NOC SHIFT Patient doing well this shift. Ambulating in hallways independently with walker. Patient denies pain. Dressing clean, dry and intact. L hemovac drain with very little output and hemovac not compressing well. Patient slept in chair for a while this shift, then getting back into bed. No acute distress. Patient hoping to go home today.
[2018-09-15] MEDS: LEVOTHYROXINE 100 MCG TABLET PO (06:28)
[2018-09-15] MEDS: LEVOTHYROXINE 75 MCG TABLET PO (06:28)
[2018-09-15] MEDS: POTASSIUM CHLORIDE 10 MEQ TAB PO (08:26)
[2018-09-15] MEDS: METFORMIN HCL 500 MG TABLET PO (08:26)
[2018-09-15] MEDS: CHOLECALCIFEROL (VITAMIN D3) 1,000 UNIT TABLET 1000 UNIT PO (08:26)
[2018-09-15] MEDS: CYANOCOBALAMIN (VITAMIN B-12) 500 MCG TABLET 1000 MCG PO (08:26)
[2018-09-15] MEDS: METOPROLOL ER 50 MG TABLET PO (08:26)
[2018-09-15] MEDS: VITAMIN A 10,000 UNIT CAPSULE 20000 UNIT PO (08:26)
[2018-09-15] MEDS: FERROUS SULFATE 325 MG TABLET PO (08:26)
[2018-09-15] MEDS: DOCUSATE 100 MG CAPSULE PO (08:26)
[2018-09-15] MEDS: TRIAMTERENE/HCTZ 37.5/25 TABLET 1 CAP PO (08:26)
[2018-09-15] MEDS: PREGABALIN 75 MG CAPSULE 300 MG PO (08:27)
[2018-09-15] MEDS: SODIUM CHLORIDE 0.9% FLUSH 10 ML IV (08:27)
[2018-09-15] MEDS: VITAMIN E 400 UNIT CAPSULE 800 UNIT PO (08:28)
[2018-09-15] MEDS: HYDROCODONE/ACET 5/325 TABLET 1 TAB PO (08:37)
--- NOTE | 2018-09-15 08:45 | PM.PNPO.1 ---
Subjective Date Patient Seen: 09/15/18 Time Patient Seen: 08:46 Interval history: She is feeling better. Exam Vital Signs (past 8 hours): - 09/15/18 04:17 Temperature 97.9 F Pulse Rate 76 Respiratory Rate 18 Blood Pressure 101/65 Pulse Oximetry 94 Oxygen Delivery Method Room Air Oxygen Flow Rate 0 Const Orientation: alert and oriented x3 Back/Spine/Pelvis Other: Dressing clean dry intact. drain 10/25/15ml Objective Labs Result Diagrams: 09/12/18 11:44 09/12/18 11:44 Labs: Both sets of cultures were growing Pseudomonas aeruginosa, pansensitive. Assessment & Plan Post-op Postoperative Procedures Operation Date: 09/12/18 15:30 Actual Procedures Side Surgeon p Incision and Drainage Wound/Spine Kashif Bautista MD Impression, superficial postoperative wound infection with Pseudomonas aeruginosa growing. She has been on the appropriate IV medication for the past 2 days since she started growing out gram-negative bacilli. I am going to change her to oral Levaquin. We did discuss the possible risk of tendon rupture as a side effect from this class of medication. However, I think this is a low but acceptable risk in her situation to be able to get such powerful oral penetration which is about equivalent to IV antibiotic dosing.
--- NOTE | 2018-09-15 08:50 | PM.DS.1 ---
History of Present Illness Date Patient Seen: 09/15/18 Time Patient Seen: 08:51 Chief complaint: ARTHRODESIS STATUS Narrative: A 73-year-old female who underwent L3 through S1 TLIF with Dr Polk on 08/16/2018. She began having drainage from her wound approximately 2 weeks after her surgery. This was initially managed with Keflex and switched over to doxycycline due to the patient's history of MRSA. She returned to clinic on 09/12/18. This wound was still having ongoing drainage and the skin was showing dehiscence. It was felt that she would need irrigation debridement. Her preoperative infection labs with white blood cell, CRP, ESR were all normal. Discharge Providers Date of admission: 09/12/18 11:31 Discharge Date: 09/15/18 Primary care physician: Betzaida Naranjo PA-C Consults: 09/12/18 18:32 Consult to Occupational Therapy Evaluate & Treat Comment: Physician Instructions: Evaluate and treat Consult to Physical Therapy Evaluate & Treat Comment: Physician Instructions: Evaluate and Treat Discharge provider: Kashif Bautista MD Summary Discharge Diagnosis: Postoperative wound infection with Pseudomonas aeruginosa Hospital Course: She underwent debridement of the lumbar wound on 09/12/2018. On postoperative day 1 her cultures began growing gram-negative bacilli. She was switched over to Zosyn from vancomycin at this point. The next day her cultures confirm Pseudomonas and sensitivities were back by 09/15/2018. This was pansensitive. Status at Discharge Cognitive/behavioral status at discharge: oriented Functional status at discharge: uses cane/walker Overall status at discharge: patient is progressing back to baseline Exam Vital Signs (past 8 hours): - 09/15/18 04:17 Temperature 97.9 F Pulse Rate 76 Respiratory Rate 18 Blood Pressure 101/65 Pulse Oximetry 94 Oxygen Delivery Method Room Air Oxygen Flow Rate 0 Objective Labs Result Diagrams: 09/12/18 11:44 09/12/18 11:44 Labs: Cultures growing pansensitive Pseudomonas aeruginosa Discharge Plan Discharge Plan Patient Disposition: Home Discharge comment: Follow-up [address] Polk Discharge Med Rec/Prescriptions Prescriptions: New hydrocodone-acetaminophen 5-325 mg Tablet 1 tab PO Q4HR PRN (Reason: Pain, Moderate (4-6)) Qty: 30 RF: 0 hydroxyzine pamoate 25 mg Capsule 25 mg PO Q4HR PRN (Reason: spasms) Qty: 20 RF: 0 docusate sodium 100 mg Capsule 100 mg PO BID PRN (Reason: constipation) Qty: 30 RF: 0 levofloxacin [Levaquin] 750 mg tablet 750 mg PO DAILY Qty: 14 RF: 0 Continued vitamin A 10,000 unit Capsule 20,000 unit PO DAILY Qty: 0 RF: 0 simvastatin 10 mg Tablet 10 mg PO BEDTIME Qty: 0 RF: 0 Lyrica 300 mg Capsule 300 mg PO BID Qty: 0 RF: 0 metformin 500 mg Tablet 500 mg PO BID RF: 0 triamterene-hydrochlorothiazid 37.5-25 mg Capsule 1 tab PO DAILY RF: 0 cholecalciferol (vitamin D3) [Vitamin D3] 1,000 unit Capsule 1,000 mg PO DAILY RF: 0 ferrous sulfate [iron] 325 mg (65 mg iron) Tablet 1 tab PO DAILY RF: 0 Advair Diskus 100-50 mcg/dose Blister With Device 2 puff INHALATION BID RF: 0 potassium chloride 10 mEq Tablet Extended Release 10 meq PO TID RF: 0 albuterol sulfate 90 mcg/actuation Hfa Aerosol Inhaler 2 puff INHALATION Q4-6H PRN (Reason: COPD) RF: 0 hydroxyzine pamoate 25 mg Capsule 25 mg PO Q4HR PRN (Reason: Nausea And Vomiting) Qty: 0 RF: 0 Novolog Flexpen U-100 Insulin 100 unit/mL Insulin Pen subcut ACHS Qty: 0 RF: 0 hydrocodone-acetaminophen 7.5-325 mg tablet 1 tab PO Q4-6H PRN (Reason: pain) Qty: 10 RF: 0 levothyroxine 175 mcg tablet 175 mcg PO DAILY RF: 0 metoprolol succinate 50 mg tablet extended release 24 hr 50 mg PO DAILY RF: 0 doxycycline hyclate 100 mg tablet 100 mg PO BID RF: 0 tramadol 50 mg tablet 50 mg PO Q6H PRN (Reason: pain) RF: 0 multivitamin Tablet 1 tab PO DAILY RF: 0 acetaminophen [Tylenol Arthritis Pain] 650 mg Tablet Extended Release 1,300 mg PO Q8H PRN (Reason: pain) RF: 0 ranitidine HCl 75 mg Tablet 75 mg PO BID RF: 0 meclizine 25 mg Tablet 25 mg PO TID PRN (Reason: Vertigo) RF: 0 diphenhydramine HCl 25 mg Capsule 50 mg PO Q4-6H PRN (Reason: UNKNOWN) RF: 0 esomeprazole magnesium [Nexium] 40 mg Capsule,Delayed Release(Dr/Ec) 40 mg PO DAILY RF: 0 Premarin 0.3 mg Tablet 0.3 mg PO DAILY RF: 0 Glucosamine Daily Complex 1 tab PO DAILY RF: 0 Vitamin C 1 tab PO DAILY RF: 0 calcium citrate 1,000 MG 1,000 mg PO DAILY RF: 0 Vitamin B-12 1 tab PO DAILY RF: 0 Follow up/Referrals: Betzaida Naranjo PA-C [Primary Care Provider] - Provider Discharge Instructions Activity: limited BLT 10 lbs Skin/Wound/Dressing Care Dressing: may change and shower POD#5 Visit Report/Discharge Packet Instructions: DI for Incision and Drainage Stand Alone Forms: Surgery Discharge Discharge Data Primary Care Provider: Betzaida Naranjo Attending Provider: Kashif Bautista Admit Date/Time: 09/12/18 11:31
[2018-09-15 09:00] VITALS: BP 124/78; PULSE 90; RESP 18; TEMP 36.6; O2SAT 95
[2018-09-15] MEDS: FLUTICASONE/SALMETEROL 100/50 14 PUFF DISKUS 2 PUFF INH (09:06)
[2018-09-15 09:09] VITALS: PULSE 88; RESP 16; O2SAT 94
--- NOTE | 2018-09-15 10:36 | CM.DPC ---
DCP Discharge Home Per MD, pt is medically stable to d/c home today with no identified barriers to discharge. SW met bedside with pt and explained role and pt has been ambulating the halls well today with 4WW and is agreeable with d/c home via spouse POV today. SW inquired about pt currently being open with [facility] and pt states that after talking with [facility] and with MD pt will d/c home with outpt wound care and not resume HH to better meet her wound care needs. SW left msg for [facility] that pt will not be Resuming HH. Plan: Patient to d/c home today via spouse POV and utilize outpt Wound Care after discharge. MATEUSZ Joseph
--- NOTE | 2018-09-15 10:59 | PC.NURSE ---
H/V Drain removed and covered with bandaid. No further seepage. Dressing to back taken down and replaced with coversite. Small amt of drainage on dressing but wound edges well approximated. IV removed and pt given scripts and paperwork for dc home. Now dressed and waiting for . Given one vicodin for pain control which is covering her pain well. Reports zero at this time.
== END 2018-09-15 12:55 | disposition home or self-care (01) | DRG 858 ==
PROVIDERS: Admitting Provider Orthopaedic Surgery; Family Provider Physician Assistant Medical; PCP Physician Assistant Medical; Visit Provider Orthopaedic Surgery
PROC: 0KBG0ZZ Excision of Left Trunk Muscle, Open Approach (ICD-10-PCS; CPT 10180; principal; 2018-09-12 15:30)
DX: T81.49XA Infection following a procedure, other surgical site, initial encounter (principal); I10 Essential (primary) hypertension; K21.9 Gastro-esophageal reflux disease without esophagitis; M79.7 Fibromyalgia; B96.5 Pseudomonas (aeruginosa) (mallei) (pseudomallei) as the cause of diseases classified elsewhere; E11.9 Type 2 diabetes mellitus without complications; J44.9 Chronic obstructive pulmonary disease, unspecified; Z87.891 Personal history of nicotine dependence; Z79.84 Long term (current) use of oral hypoglycemic drugs; Z86.14 Personal history of Methicillin resistant Staphylococcus aureus infection
CPT/HCPCS: 36415; 80048; 80202; 82962; 85025; 85651; 86140; 87070; 87075; 87077; 87186; 87205; 94640; 94760; 97116; 97161; 97165; 97535; J0330; J1100; J1170; J2405; J2543; J2704; J3010; J3370; J3410